=== PATIENT | male | born 1980 | race Caucasian/White ===

== ENCOUNTER 2017-05-12 21:40 | Emergency (ER) | payer OTHER, SELFPAY ==
[2017-05-12 21:46] VITALS: BP 133/92; PULSE 81; RESP 14; TEMP 37.2; O2SAT 97; BMI 26.9
--- NOTE | 2017-05-12 22:14 | HMH.EDWNDL ---
ED Disposition Clinical Impression: Abrasion Disposition: Home, Self-Care Condition on Discharge: Good Instructions: DI for Abrasion Additional Instructions: use meds and see pcp for follow up Prescriptions: Mupirocin [Bactroban 2% Ointment 22gm tube] 1 applicatio TP TID 5 Days #1 tube - Critical Care Critical Care Time: No Attestation: On 05/12/17, the high probability of a clinically significant, sudden or life threatening deterioration of the following system(s) required my full and direct attention, intervention and personal management. The time I documented below is in addition to time spent performing reported procedures but includes the following listed in this critical care notation. Medical Decision Making - Medical Records Medical records reviewed: Yes: I reviewed the patient's medical records. Vital Signs: 05/12/17 21:46 Temperature 98.9 F Temperature Source Oral Pulse Rate [Left Radial] 81 Respiratory Rate 14 Blood Pressure [Right Arm] 133/92 Blood Pressure Mean [Right Arm] 105 Blood Pressure Source [Right Arm] Automatic Cuff Blood Pressure Position [Right Arm] Sitting 02 Sat by Pulse Oximetry 97 Oxygen Delivery Method Room Air - Lab Data Lab results reviewed: Yes: I reviewed the patient's lab results. 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 by RN): cut finger yesterday on kevin metal and was concerned he had not had a tetanus vacc in over 10 yrs - History of Present Illness HPI narrative: open wd lt index finger with no drainage Onset (ago): day(s) Extremity Location: Left: hand (index finger) Place: home Patient tetanus UTD: No Context: accidental Associated symptoms: none - Related Data Previous Rx's Medication Instructions Recorded Mupirocin [Bactroban 2% Ointment 1 applicatio TP TID 5 Days #1 tube 05/12/17 22gm tube] Allergies Allergy/AdvReac Type Severity Reaction Status Date / Time Penicillins [PENICILLINS] Allergy Severe S-SWELLS-OR Verified 05/12/17 21:54 AL/THROAT [facility] History I have reviewed the patient's past medical history: Yes Medical History: Denies:: Cancer, Diabetes Mellitus Type 1, Diabetes Mellitus Type 2, MRSA Amputation: No Fractures: No - Social History Smoking Status: Never smoker Alcohol Intake: never - Psychiatric History Expresses thoughts of harming self/others: None Suicide Plan Description: No Plan ROS Obtained: Yes All systems reviewed & no additional complaints - Constitutional Constitutional: Denies fever(s) - Eyes Eyes: Denies change in vision - ENT Ears, Nose, Mouth, and Throat: Denies sore throat - Cardiovascular Cardiovascular: Denies chest pain - Respiratory Respiratory: No chest congestion, No cough - Gastrointestinal Gastrointestingal: Denies: abdominal pain - Musculoskeletal Musculoskeletal: Denies joint pain - Integumentary/Breasts Skin/Breast: Reports as per HPI, Denies rash, Reports wounds - Neurologic Neurologic: Denies seizure-like activity Physical Exam - General General appearance: in no apparent distress - Head Head exam: normocephalic - Eye Eye exam: Present: PERRL, EOMI - ENT ENT exam: Present: mucous membranes moist - Neck Neck exam: Present: trachea midline - Respiratory Respi
--- NOTE | 2017-05-12 22:18 | ED_ITS ---
ED Disposition Clinical Impression: Abrasion Disposition: Home, Self-Care Condition on Discharge: Good Instructions: DI for Abrasion Additional Instructions: use meds and see pcp for follow up Prescriptions: Mupirocin [Bactroban 2% Ointment 22gm tube] 1 applicatio TP TID 5 Days #1 tube - Critical Care Critical Care Time: No Attestation: On 05/12/17, the high probability of a clinically significant, sudden or life threatening deterioration of the following system(s) required my full and direct attention, intervention and personal management. The time I documented below is in addition to time spent performing reported procedures but includes the following listed in this critical care notation. Medical Decision Making - Medical Records Medical records reviewed: Yes: I reviewed the patient's medical records. Vital Signs: 05/12/17 21:46 Temperature 98.9 F Temperature Source Oral Pulse Rate [Left Radial] 81 Respiratory Rate 14 Blood Pressure [Right Arm] 133/92 Blood Pressure Mean [Right Arm] 105 Blood Pressure Source [Right Arm] Automatic Cuff Blood Pressure Position [Right Arm] Sitting 02 Sat by Pulse Oximetry 97 Oxygen Delivery Method Room Air - Lab Data Lab results reviewed: Yes: I reviewed the patient's lab results. 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 by RN): cut finger yesterday on kevin metal and was concerned he had not had a tetanus vacc in over 10 yrs - History of Present Illness HPI narrative: open wd lt index finger with no drainage Onset (ago): day(s) Extremity Location: Left: hand (index finger) Place: home Patient tetanus UTD: No Context: accidental Associated symptoms: none - Related Data Previous Rx's Medication Instructions Recorded Mupirocin [Bactroban 2% Ointment 1 applicatio TP TID 5 Days #1 tube 05/12/17 22gm tube] Allergies Allergy/AdvReac Type Severity Reaction Status Date / Time Penicillins [PENICILLINS] Allergy Severe S-SWELLS-OR Verified 05/12/17 21:54 AL/THROAT [facility] History I have reviewed the patient's past medical history: Yes Medical History: Denies:: Cancer, Diabetes Mellitus Type 1, Diabetes Mellitus Type 2, MRSA Amputation: No Fractures: No - Social History Smoking Status: Never smoker Alcohol Intake: never - Psychiatric History Expresses thoughts of harming self/others: None Suicide Plan Description: No Plan ROS Obtained: Yes All systems reviewed & no additional complaints - Constitutional Constitutional: Denies fever(s) - Eyes Eyes: Denies c
[2017-05-12 22:24] VITALS: BP 130/90; PULSE 80; RESP 16; TEMP 37; O2SAT 98
== END 2017-05-12 22:24 | disposition home or self-care (01) ==
PROVIDERS: Emergency Provider Emergency Medicine; Family Provider Emergency Medicine; PCP Emergency Medicine
DX: S60.411A Abrasion of left index finger, initial encounter (principal); Z23 Encounter for immunization
CPT/HCPCS: 90471; 90715; 96372; 99281

== ENCOUNTER → 2018-07-26 17:44 | Outpatient (CLI) | payer OTHER, SELFPAY ==
[2018-07-26 18:37] LABS: Basophils % 0.7 % (0.1-2.0); Eosinophils # 0.1 K/mm3 (0.0-0.4); Eosinophils % 2.2 % (0.1-12.0); Hematocrit 48.8 % (42.0-52.0); Lymphocytes # 1.7 K/mm3 (0.7-4.5); Lymphocytes % 29.8 % (10-50); Mean Corpuscular HGB Conc 34.8 g/dL (31.8-35.4); Mean Corpuscular Volume 89.2 fl (80-94); Mean Platelet Volume 8.5 fl (7.4-10.4); Monocytes # 0.3 K/mm3 (0.1-1.0); Monocytes % 4.4 % (1.7-9.3); Neutrophils # 3.6 K/mm3 (1.8-7.8); Neutrophils % 62.9 % (37.0-80.0); Platelet Count 296 K/mm3 (142-424); Red Blood Count 5.47 M/mm3 (4.60-6.20); Red Cell Distribution Width 12.9 % (11.5-17.5); White Blood Count 5.7 K/mm3 (4.8-10.8)
[2018-07-26 19:10] LABS: Alanine Aminotransferase 44 U/L (12-78); Albumin Level 4.5 gm/dL (3.4-5.0); Albumin/Globulin Ratio 1.2 (1.1-1.8); Alkaline Phosphatase 96 U/L (46-116); Anion Gap 15.1 mEq/L (5-15); Aspartate Amino Transferase 21 U/L (15-37); Bilirubin,Total 0.4 mg/dL (0.2-1.0); Blood Urea Nitrogen 10 mg/dL (7-18); Calcium 9.1 mg/dL (8.5-10.1); Carbon Dioxide 26 mmol/L (21.0-32.0); Chloride 104 mmol/L (98-107); Chol/HDL Ratio 6.2 (1-3.5); Cholesterol 240 mg/dL (140-200); Creatinine,Serum 1.04 mg/dL (0.70-1.30); Estimated Glomerular Filt Rate 80 ml/min (>60); GFR (African American) 96 ML/MIN (>60); Globulin 3.7 gm/dl (1.3-3.2); Glucose 91 mg/dL (74-106); HDL Cholesterol 39 mg/dL (27-67); LDL Cholesterol 151 mg/dL (0-130); Potassium 4.1 mmoL/L (3.5-5.1); Sodium 141 mmol/L (136-145); Thyroid Stimulating Hormone 0.58 uIU/ml (0.358-3.740); Total Protein,Serum 8.2 gm/dL (6.4-8.2); Triglycerides 251 mg/dL (30-200); VLDL Cholesterol 50 mg/dL (0-40)
[2018-07-28 18:08] LABS: Testosterone,Total 290 ng/dL (264-916); Vitamin D 25 Hydroxy 24.3 ng/mL (30.0-100.0)
== END ==
PROVIDERS: Visit Provider Physician Assistant
DX: L98.9 Disorder of the skin and subcutaneous tissue, unspecified (principal); N52.9 Male erectile dysfunction, unspecified
CPT/HCPCS: 80053; 80061; 82652; 84403; 84436; 84443; 85025

== ENCOUNTER → 2018-09-14 15:24 | Outpatient (CLI) | payer OTHER, SELFPAY ==
--- NOTE | 2018-09-14 15:40 | CT_ITS ---
CT sinus wo con INDICATION: ITS.REASON: Sinusitis ORDERING PHYSICIAN: Dylan Wills MD PATIENT AGE: 38 years COMPARISON: 09/03/2014 TECHNIQUE: Contrast Used:None Oral Contrast: Axial images were obtained. Sagittal and coronal reformatted images are reviewed as well. All CT scans at the facility use one or more dose reduction, viz: automated exposure control, ma/kV adjustment per patient size (including targeted exams where dose is matched to indication, i.e. head), or iterative reconstruction technique. FINDINGS: No significant mucosal thickening or sinus air-fluid level is evident. There are small bilateral blanka bullosa. There is mild rightward nasal septal deviation. There is narrowing of the right nasal canal anteriorly.. There is a small Gustabo cell on the left with mild narrowing of the left ostiomeatal complex. No mastoid effusion. The middle ears are well aerated. Unremarkable TMJs. Unremarkable appearing orbits. IMPRESSION: 1. Mild rightward nasal septal deviation with narrowing of the right nasal canal. 2. Narrowed left ostiomeatal complex with mucosal thickening and a small left Gustabo cell IMPRESSION:
== END ==
PROVIDERS: PCP Physician Assistant; Visit Provider Otolaryngology
DX: J32.9 Chronic sinusitis, unspecified (principal)
CPT/HCPCS: 70486

== ENCOUNTER → 2019-08-07 17:01 | Outpatient (CLI) | payer OTHER, SELFPAY ==
[2019-08-07 18:27] LABS: Basophils # 0.1 K/mm3 (0-0.2); Basophils % 0.8 % (0.1-2.0); Eosinophils # 0.2 K/mm3 (0.0-0.4); Eosinophils % 2.7 % (0.1-12.0); Hematocrit 46.1 % (42.0-52.0); Hemoglobin 16.3 g/dL (14.1-18.0); Lymphocytes # 1.8 K/mm3 (0.7-4.5); Lymphocytes % 22.7 % (10-50); Mean Corpuscular HGB Conc 35.4 g/dL (31.8-35.4); Mean Corpuscular Hemoglobin 31.4 pg (27.0-31.2); Mean Corpuscular Volume 88.8 fl (80-94); Mean Platelet Volume 8.6 fl (7.4-10.4); Monocytes # 0.4 K/mm3 (0.1-1.0); Monocytes % 4.5 % (1.7-9.3); Neutrophils # 5.6 K/mm3 (1.8-7.8); Neutrophils % 69.3 % (37.0-80.0); Platelet Count 288 K/mm3 (142-424); Red Blood Count 5.19 M/mm3 (4.60-6.20); Red Cell Distribution Width 13.3 % (11.5-17.5); White Blood Count 8.1 K/mm3 (4.8-10.8)
[2019-08-07 18:32] LABS: Alanine Aminotransferase 33 U/L (12-78); Albumin Level 5.1 g/dl (3.5-5.0); Albumin/Globulin Ratio 1.5 (1.1-1.8); Alkaline Phosphatase 101 U/L (38-126); Anion Gap 12.9 mEq/L (5-15); Aspartate Amino Transferase 34 U/L (17-59); Bilirubin,Total 0.7 mg/dl (0.2-1.3); Blood Urea Nitrogen 10 mg/dl (9-20); Calcium 9.9 mg/dl (8.4-10.2); Carbon Dioxide 24 mmol/L (22.0-30.0); Chloride 105 mmol/L (98-107); Chol/HDL Ratio 6.2 (1-3.5); Cholesterol 254 mg/dl (140-200); Estimated Glomerular Filt Rate 93 ml/min (>60); GFR (African American) 113 ML/MIN (>60); Globulin 3.5 g/dL (1.3-3.2); Glucose 93 mg/dl (74-100); HDL Cholesterol 41 mg/dl (40-60); Potassium 3.9 mmoL/L (3.5-5.1); Sodium 138 mmol/L (136-145); Total Protein,Serum 8.6 g/dl (6.3-8.2)
[2019-08-07 18:44] LABS: Direct LDL Cholesterol 136.19 mg/dL (100-129)
[2019-08-07 18:50] LABS: T4 (Thyroxine) 8.3 ug/dl (5.53-11.0)
[2019-08-07 19:00] LABS: Triglycerides 582 mg/dl (30-150)
[2019-08-07 19:04] LABS: Thyroid Stimulating Hormone 1.16 uIU/mL (0.465-4.68)
[2019-08-09 20:32] LABS: Vitamin D 25 Hydroxy 19.8 ng/mL (30.0-100.0)
== END ==
PROVIDERS: Visit Provider Physician Assistant
DX: I10 Essential (primary) hypertension (principal); E55.9 Vitamin D deficiency, unspecified; Z79.899 Other long term (current) drug therapy
CPT/HCPCS: 80053; 80061; 82652; 84436; 84443; 85025

== ENCOUNTER → 2020-04-06 09:20 | Outpatient (CLI) | payer OTHER, SELFPAY ==
--- NOTE | 2020-04-06 09:20 | FL_ITS ---
PROCEDURE: FL BARIUM SWALLOW CLINICAL INDICATION: Dysphagia COMPARISON: No exams were available for comparison TECHNIQUE: In the upright position the patient was observed to swallow barium in both the AP and lateral view. The cervical esophagus was examined under fluoroscopy with images obtained. The patient was then placed prone in the right anterior oblique position and was observed to swallow barium with Valsalva technique . FLUOROSCOPY TIME: FINDINGS: There was no evidence of aspiration. There was normal peristalsis. No filling defects or mucosal abnormalities. No masses or strictures. There is mild spasm of the cricopharyngeus IMPRESSION: Mild cricopharyngeal spasm otherwise negative barium swallow Dictated by: Arun Gamboa MD 04/06/2020 18:41 Arun Gamboa MD in [place] 04/06/2020 18:41
== END ==
PROVIDERS: PCP Physician Assistant; Visit Provider Nurse Practitioner Family
DX: R13.10 Dysphagia, unspecified (principal)
CPT/HCPCS: 74220

== ENCOUNTER → 2020-04-29 11:52 | Outpatient (CLI) | payer OTHER, SELFPAY ==
[2020-04-29 14:26] LABS: Basophils # 0.1 K/mm3 (0-0.2); Basophils % 0.6 % (0.1-2.0); Eosinophils # 0.1 K/mm3 (0.0-0.4); Eosinophils % 1.1 % (0.1-12.0); Hematocrit 43.1 % (42.0-52.0); Hemoglobin 14.4 g/dL (14.1-18.0); Lymphocytes # 2.3 K/mm3 (0.7-4.5); Lymphocytes % 29.3 % (10-50); Mean Corpuscular HGB Conc 33.5 g/dL (31.8-35.4); Mean Corpuscular Hemoglobin 30.9 pg (27.0-31.2); Mean Corpuscular Volume 92.3 fl (80-94); Mean Platelet Volume 8.5 fl (7.4-10.4); Monocytes # 0.4 K/mm3 (0.1-1.0); Monocytes % 4.6 % (1.7-9.3); Neutrophils % 64.3 % (37.0-80.0); Platelet Count 245 K/mm3 (142-424); Red Blood Count 4.67 M/mm3 (4.60-6.20); Red Cell Distribution Width 13.3 % (11.5-17.5); White Blood Count 7.8 K/mm3 (4.8-10.8)
[2020-04-29 14:46] LABS: Alanine Aminotransferase 23 U/L (12-78); Albumin Level 4.5 g/dl (3.5-5.0); Albumin/Globulin Ratio 1.5 (1.1-1.8); Alkaline Phosphatase 77 U/L (38-126); Anion Gap 10.4 mEq/L (5-15); Aspartate Amino Transferase 28 U/L (17-59); Bilirubin,Total 0.7 mg/dl (0.2-1.3); Blood Urea Nitrogen 15 mg/dl (9-20); Calcium 9.8 mg/dl (8.4-10.2); Carbon Dioxide 29 mmol/L (22.0-30.0); Chloride 106 mmol/L (98-107); Chol/HDL Ratio 6.2 (1-3.5); Cholesterol 205 mg/dl (140-200); Estimated Glomerular Filt Rate 93 ml/min (>60); GFR (African American) 113 ML/MIN (>60); Glucose 95 mg/dl (74-100); HDL Cholesterol 33 mg/dl (40-60); Magnesium 2.2 mg/dl (1.6-2.3); Potassium 4.4 mmoL/L (3.5-5.1); Sodium 141 mmol/L (136-145); Total Protein,Serum 7.5 g/dl (6.3-8.2); Triglycerides 314 mg/dl (30-150); VLDL Cholesterol 63 mg/dL (0-40)
[2020-04-29 14:57] LABS: Direct LDL Cholesterol 118.01 mg/dL (100-129)
[2020-04-29 15:05] LABS: T4 (Thyroxine) 7.2 ug/dl (5.53-11.0)
[2020-04-29 15:17] LABS: Thyroid Stimulating Hormone 1.21 uIU/mL (0.465-4.68)
== END ==
PROVIDERS: PCP Physician Assistant; Visit Provider Physician Assistant
DX: R07.9 Chest pain, unspecified (principal); R00.1 Bradycardia, unspecified; R25.1 Tremor, unspecified
CPT/HCPCS: 80053; 80061; 83735; 84436; 84443; 85025; 93225; 93226

== ENCOUNTER → 2020-04-29 14:08 | Outpatient (CLI) | payer OTHER, SELFPAY | PROVIDERS: Visit Provider Physician Assistant | DX: R07.9 Chest pain, unspecified (principal) | CPT/HCPCS: 80053; 80061; 83735; 84436; 84443; 85025 ==

== ENCOUNTER → 2020-05-02 12:57 | Outpatient (CLI) | payer OTHER, SELFPAY ==
[2020-05-02 14:31] LABS: Coronavirus 19 IgG Antibody Negative (Negative); Coronavirus 19 IgM Antibody Negative (Negative)
== END ==
PROVIDERS: Visit Provider Internal Medicine Gastroenterology
DX: Z01.812 Encounter for preprocedural laboratory examination (principal); Z20.822 Contact with and (suspected) exposure to COVID-19; Z13.810 Encounter for screening for upper gastrointestinal disorder; R13.10 Dysphagia, unspecified
CPT/HCPCS: 36415; 86328

== ENCOUNTER 2020-05-04 13:57 | Day surgery (SDC) | payer OTHER, SELFPAY ==
[2020-04-28 12:42] VITALS: BMI 24.3
[2020-05-04 14:16] VITALS: BP 138/95; PULSE 67; RESP 18; TEMP 36.7; O2SAT 97
[2020-05-04 14:35] VITALS: O2SAT 97
--- NOTE | 2020-05-04 14:53 | HMH.PROC ---
[facility] Procedure Note Procedure Note:: Upper Endoscopy Procedure Report: Esophagogastroduodenoscopy with cold biopsies and TTS balloon dilation Endoscopost: Lam Siegel II, MD Referring Physician: Milvia Gonzalez PA-C Date of Procedure: May 04, 2020 Equipment: Olympus GIF 180 standard upper endoscope Sedation: MAC sedation Indications: Mr. Perez is a 40-year-old gentleman who is here for diagnostic evaluation of his globus sensation. In the beginning, he did have a clicking sensation in the mid upper sternum. He has had some hard and painful swallowing and intermittent dysphagia. He also has a sore throat with some fullness in the right side of his throat. He has noted some frequent clearance of the throat. The patient also has had intermittent right-sided abdominal pain. He reports moderate belching. He has had some heartburn, reflux and regurgitation. He reports occasional nausea. He has had no early satiety. The patient also has had irregular bowel function with constipation alternating with diarrhea. He has incomplete bowel evacuation. He does report some moderate anxiety. He has noted occasional hemorrhoidal bleeding. His last colonoscopy was more than 10 years ago. He reports no cough or hoarseness. He does smoke cigarettes/tobacco in the past. Procedure: Prior to the procedure, a history and physical exam was performed, and patient's medications and allergies were reviewed. The risks, benefits and alternatives of the sedation and procedure were discussed with the patient. All questions were answered and informed consent was obtained. The patient was brought to the procedure room. Patient identification and proposed procedure were verified by the physician and the nurse. The patient was placed in a left lateral decubitus position and the scope was passed under direct vision. Throughout the procedure, the patient's blood pressure, pulse, and oxygen saturations were monitored continuously. The upper GI endoscopy was accomplished without difficulty. The patient tolerated the procedure well. Findings: The scope was passed directly into the upper esophagus and advanced to the third portion of the duodenum. The post bulbar duodenum and duodenal bulb were normal with normal mucosa and conniventes. Cold biopsies were taken from the post bulbar duodenum. There was mild peptic duodenitis of the bulb. The scope was withdrawn through a normal pylorus into the stomach. The antrum of the stomach is normal. There was moderate chronic gastritis with mosaic pattern and some submucosal petechiae in the body and fundus of the stomach (type A gastritis) and biopsies were obtained from the lesser curvature to rule out H. pylori. Upon retroflexion there was no hiatal hernia. The scope was then withdrawn into the esophagus. There was a serrated Z-line. There was no evidence of reflux esophagitis or Schatzki's ring. There were strong tertiary contractions and evidence of moderate esophageal dysmotility. The entire esophagus was dilated to 60 English/20 mm with a TTS hydrostatic balloon. There was moderate resistance at the cricopharyngeus. The remainder of the esophageal mucosa was normal. Impression: 1. Cricopharyngeal spasm status post dilation to 20 mm 2. Nonerosive GERD with moderate esophageal dysmotility 3. Chronic gastritis?rule out H. pylori Plan: I will follow-up the biopsies. The patient does have cricopharyngeal spasm/globus with esophageal dyskinesia and functional GERD. We will discuss treatment options. I do feel that much of this is related to gas pressure gradients from colonic fermentation/gas production.
[2020-05-04 14:54] VITALS: BP 134/90; PULSE 87; RESP 18; O2SAT 94
[2020-05-04 15:04] VITALS: BP 131/84; PULSE 74; RESP 18; O2SAT 97
[2020-05-04 15:14] VITALS: BP 140/90; PULSE 64; RESP 18; O2SAT 98
--- NOTE | 2020-05-04 15:34 | HMH.ANESCL ---
[facility] Anesthesia Checklist - Patient Identification Patient Identification: Arm Band - Structural Data Admitted From: Home Planned Operative Procedure/s: egd Consent for Planned Operative Procedure(s) Verified: Yes Verified Documents: Surgical Consent - Additional verifications Anesthesia Reactions: No Hx Blood Transfusions: No Blood Transfusion Reaction: No - Anesthesia Plan Anesthesia Risk discussed: Yes Anesthesia Plan: Verified ASA Class: II Anesthesia Type: General [facility] History Medical History: Reports:: Asthma, Gastroesophageal Reflux Disease(GERD), Hyperlipidemia, Hypertension, MRSA Denies:: Cancer, Diabetes Mellitus Type 1, Diabetes Mellitus Type 2, Internal Pacemaker, Seizures *Have you ever received a pneumonia vaccine?: No *Have you received a flu vaccine this season?: No Other Medical History: Reports: Hoarseness, Sinus Problems. Denies: Blood Transfusion Reaction Anesthesia experience/problems:: none Other Surgeries: Yes: No Previous Surgery, Colonoscopy. No: Pacemaker Amputation: No Fractures: No - *Social History Last grade of school completed: Some college Smoking Status: Current every day smoker Tobacco Type: e-cigarettes # Packs/Day (cigarettes): 1 Smoking End Date: 03/2020 Alcohol Intake: never Substance Use Type: marijuana *Occupational Status:: employed, student Housing: house Household Members: spouse *Travel in the last 8 weeks: None Family Hx:: Diabetes, Heart Attack, Hypertension
[2020-05-04 15:41] VITALS: BP 151/98; PULSE 62; RESP 18; O2SAT 97
== END 2020-05-04 15:45 | disposition home or self-care (01) ==
LOC: OUTP 13:58
PROVIDERS: PCP Physician Assistant; Visit Provider Internal Medicine Gastroenterology
PROC: 0DJ08ZZ Inspection of Upper Intestinal Tract, Via Natural or Artificial Opening Endoscopic (ICD-10-PCS; CPT 43235; principal; 2020-05-04 14:30)
DX: F41.9 Anxiety disorder, unspecified; J45.909 Unspecified asthma, uncomplicated; J39.2 Other diseases of pharynx; K21.9 Gastro-esophageal reflux disease without esophagitis; K22.4 Dyskinesia of esophagus; K29.50 Unspecified chronic gastritis without bleeding; E78.5 Hyperlipidemia, unspecified; I10 Essential (primary) hypertension; Z86.14 Personal history of Methicillin resistant Staphylococcus aureus infection; Z72.0 Tobacco use; F12.90 Cannabis use, unspecified, uncomplicated; Z82.49 Family history of ischemic heart disease and other diseases of the circulatory system
CPT/HCPCS: 43239; 43249; C1726

== ENCOUNTER → 2020-05-15 14:04 | Outpatient (CLI) | payer OTHER, SELFPAY ==
--- NOTE | 2020-05-15 14:35 | PC.NURSE ---
Per Sakina Wray, [employer] INSPECTOR: Spoke with Jenna (Dr. Miguel office) need to reschedule stress test. Pt was hypertensive. Pt instructed to take his Lisinopril 10mg BID and follow up with cardiology on Monday. If develops S/S go to the ER. Pt verbalized understanding. Cardiology clinic 1:00pm.
== END ==
PROVIDERS: PCP Physician Assistant; Visit Provider Physician Assistant
DX: R07.9 Chest pain, unspecified (principal); R06.81 Apnea, not elsewhere classified; R25.1 Tremor, unspecified
CPT/HCPCS: 93306; 95806

== ENCOUNTER 2022-02-16 15:09 | Outpatient (RCR) | payer OTHER, SELFPAY ==
--- NOTE | 2022-02-16 16:28 | HMH.PTOPEV ---
PT Outpatient Evaluation Rehab PT Outpatient Evaluation Start: 02/16/22 15:56 Freq: Status: Active Protocol: Document 02/16/22 15:57 CHRISTIANO (Rec: 02/16/22 16:27 CHRISTIANO [id number]) E-signed By Jose Lee, PT Outpatient Therapy Subjective History Subjective History Patient is a 42 year old male presenting to outpatient PT with reports of CS pain with BUE radicular symptoms. Patient underwent ACDF and ADR surgical procedures on 08/11/21 . Patient demonstrates lack of motor control of all R shoulder mm, as well as pain radiating to L elbow. Patient was initially having symptoms to B C8 dermatomes. Comorbidiites include hx of HTN, HL, asthma. Chief Complaint Pain,Stiff,Clicks,Catches/ Locks,Gives out/Unstable, Paresthesia,Weakness Symptom Type Ache,Throb,Sharp,Dull Symptoms Relieved By Rest/Positioning,OTC Meds Symptoms Aggravated By Sitting,Lifting Prior Functional Limitations None Current Functional Limitations Reaching,Lifting,Housework, Sleeping Symptom Description Constant but Variable Level of pain today (0-10) 3 Pain scale - at its best (0-10) 3 Pain scale - at its worst (0-10) 6 Cervical Eval Palpation Cervical Muscles R Upper Trapezius,L Upper Trapezius Cervical/Thoracic Palpation Findings Tenderness Posture Head/C-Spine Posture Sitting Position C-Spine Flattened Head/C-Spine Posture Standing Position C-Spine Flattened Flexibility Deficits Upper Trapezius Muscle Length (R) Moderate Tightness,(L) Moderate Tightness Pectoralis Minor Muscle Length (R) Moderate Tightness,(L) Moderate Tightness Passive Joint Mobility Cervical PIVM Dec: R OA L OA R AA L AA R C2/3 L C2/3 R C3/4 L C3/4 R C4/5 L C4/5 R C5/6 L C5/6 R C6/7 L C6/7
== END 2022-02-16 15:10 | disposition home or self-care (01) ==
LOC: PT 15:09
PROVIDERS: Visit Provider Physician Assistant
DX: R20.2 Paresthesia of skin (principal); M43.22 Fusion of spine, cervical region
CPT/HCPCS: 97163

== ENCOUNTER 2022-03-29 16:00 | Outpatient (RCR) | payer OTHER, SELFPAY ==
--- NOTE | 2022-03-18 16:48 | HMH.PTOPEV ---
PT Outpatient Evaluation Rehab PT Outpatient Evaluation Start: 03/18/22 16:31 Freq: Status: Active Protocol: Document 03/18/22 16:31 CHRISTIANO (Rec: 03/18/22 16:48 CHRISTIANO [id number]) E-signed By Jose Lee, PT Outpatient Therapy Subjective History Subjective History Patient is a 42 year old male presenting to outpatient PT with reports of chronic cervical spine pain with RUE radicular symptoms starting 2021. Symptoms have progressively gotten worse and are of insidious onset. Procdure perfomed was C6/7 fusion with C4/5 disc replacement per patient report . Chief Complaint Pain,Spasms,Stiff,Clicks, Paresthesia,Weakness Symptom Type Ache,Throb,Sharp,Dull,Burning, Numbness,Tingling Symptoms Relieved By Rest/Positioning Symptoms Aggravated By Physical Activity,Lifting Prior Functional Limitations None Current Functional Limitations Reaching,Lifting,Housework, Driving,Sleeping,Recreation Activity Symptom Description Constant but Variable Level of pain today (0-10) 6 Pain scale - at its best (0-10) 2 Pain scale - at its worst (0-10) 6 Cervical Eval Palpation Cervical Muscles R Upper Trapezius,L Upper Trapezius Cervical/Thoracic Palpation Findings Tenderness,Spasm,Trigger Point Posture Head/C-Spine Posture Sitting Position C-Spine Flattened Head/C-Spine Posture Standing Position C-Spine Flattened Flexibility Deficits Upper Trapezius Muscle Length (R) Moderate Tightness,(L) Moderate Tightness Levaetor Scapulae Muscle Length (R) Moderate Tightness,(L) Moderate Tightness Pectoralis Minor Muscle Length (R) Moderate Tightness,(L) Moderate Tightness Passive Joint Mobility Cervical PIVM Dec: R OA L OA R AA L AA R C2/3 L C2/3 R C3/4 L C3/4 R C4/5 L C4/5 R C5/6 L C5/6 R C6/7
== END 2022-03-29 16:05 | disposition home or self-care (01) ==
LOC: PT 16:00
PROVIDERS: PCP Physician Assistant; Visit Provider Physician Assistant
DX: R20.2 Paresthesia of skin (principal)
CPT/HCPCS: 97010; 97014; 97110; 97163; G0283

== ENCOUNTER → 2022-07-12 23:29 | Outpatient (CLI) | payer OTHER, SELFPAY ==
[2022-07-12 18:40] LABS: Chloride 99 mmol/L (98-107); Sodium 139 mmol/L (136-145)
[2022-07-12 18:43] LABS: Alanine Aminotransferase 32 U/L (12-78); Albumin Level 4.7 g/dl (3.5-5.0); Albumin/Globulin Ratio 1.7 (1.1-1.8); Alkaline Phosphatase 86 U/L (38-126); Anion Gap 21.3 mEq/L (5-15); Aspartate Amino Transferase 35 U/L (17-59); Bilirubin,Total 0.6 mg/dl (0.2-1.3); Blood Urea Nitrogen 12 mg/dl (9-20); Calcium 9.2 mg/dl (8.4-10.2); Carbon Dioxide 23 mmol/L (22.0-30.0); Cholesterol 259 mg/dl (140-200); Estimated Glomerular Filt Rate 92 ml/min (>60); GFR (African American) 111 ML/MIN (>60); Globulin 2.8 g/dL (1.3-3.2); Glucose 79 mg/dl (74-100); Potassium 4.3 mmoL/L (3.5-5.1); Total Protein,Serum 7.5 g/dl (6.3-8.2)
[2022-07-12 18:44] LABS: Chol/HDL Ratio 8.1 (1-3.5); HDL Cholesterol 32 mg/dl (40-60)
[2022-07-12 18:45] LABS: Triglycerides 482 mg/dl (30-150)
[2022-07-12 18:49] LABS: Basophils # 0.1 K/mm3 (0-0.2); Basophils % 0.6 % (0.1-2.0); Eosinophils # 0.1 K/mm3 (0.0-0.4); Eosinophils % 1.3 % (0.1-12.0); Hematocrit 41.7 % (42.0-52.0); Hemoglobin 13.8 g/dL (14.1-18.0); Lymphocytes # 2.1 K/mm3 (0.7-4.5); Lymphocytes % 26.3 % (10-50); Mean Corpuscular HGB Conc 33.2 g/dL (31.8-35.4); Mean Corpuscular Volume 84.5 fl (80-94); Mean Platelet Volume 8.4 fl (7.4-10.4); Monocytes # 0.5 K/mm3 (0.1-1.0); Monocytes % 6.1 % (1.7-9.3); Neutrophils # 5.4 K/mm3 (1.8-7.8); Neutrophils % 65.8 % (37.0-80.0); Platelet Count 331 K/mm3 (142-424); Red Blood Count 4.93 M/mm3 (4.60-6.20); White Blood Count 8.1 K/mm3 (4.8-10.8)
[2022-07-12 18:54] LABS: Direct LDL Cholesterol 135.69 mg/dL (100-129)
[2022-07-12 18:59] LABS: 25-OH Vitamin D, Total 25.8 ng/mL (30-100)
[2022-07-12 19:11] LABS: Prostate Specific Ag Screen 1.4 ng/ml (0.0-4.0)
[2022-07-12 19:12] LABS: Thyroid Stimulating Hormone 0.45 uIU/mL (0.465-4.68)
[2022-07-12 19:31] LABS: Vitamin B12 360 pg/mL (239-931)
[2022-07-14 09:44] LABS: Testosterone,Total 426 ng/dL (264-916)
== END ==
PROVIDERS: PCP Physician Assistant; Visit Provider Physician Assistant
DX: Z00.00 Encounter for general adult medical examination without abnormal findings (principal); F41.9 Anxiety disorder, unspecified; E55.9 Vitamin D deficiency, unspecified; Z12.5 Encounter for screening for malignant neoplasm of prostate
CPT/HCPCS: 80053; 80061; 82306; 82607; 84403; 84443; 85025; G0103

== ENCOUNTER 2024-06-28 12:58 | Outpatient (CLI) | payer OTHER, SELFPAY ==
--- OUTSIDE RECORDS SUMMARY | 2024-06-28 12:59 | XMS_ITS | Continuity of Care Document ---
Author Organization [facility]. If a dditional information is needed, contact Health Information Management at [phone] Address [address] [place] [address] Phone Care Team Providers Care Land Economist Name Role Phone Unavailable Unavailable Unavailable Unavailable Unavailable Unavailable Unavailable Unavailable Unavailable Unavailable Unavailable Unavailable Unavailable Unavailable Unavailable Unavailable Unavailable Unavailable Unavailable Unavailable Unavailable Unavailable Unavailable Unavailable Unavailable Unavailable Unavailable Unavailable Unavailable Unavailable Unavailable Unavailable Unavailable Unavailable Unavailable Unavailable Unavailable Unavailable Unavailable Unavailable Unavailable Unavailable Unavailable Unavailable Unavailable Unavailable Unavailable Unavailable Note Xu Scanlon MD-16-May-2024 ? ? ? [facility] ([facility])Discharge SummaryREPORT#:[id number] REPORT STATUS: SignedDATE:05/26/24 TIME: 1742PATIENT: NOLBERTO GARY UNIT #: [id number]#:[id number] [address] [birth year] AGE: 44 SEX: M ATTEND: Ghislaine Mcnair MDADM AUTHOR: Ghislaine Mcnair MDREP SRV REP SRV JERRY: 1742* ALL edits or amendments must be made on the electronic/computer document *General InformationDate of admission:Observation Start Date: 05/25/24Date of admission: 05/25/24Discharge date: 05/26/24Admission diagnosis:Dysphonia, Bilateral facial numbness, left upper extremity numbnessmlelectrolyte abnormality plus/minus anxietyHypophosphatemiaStroke alertHistory of vaping every dayMicrocytic anemia.Discharge diagnosis:Dysphonia, Bilateral facial numbness, left upper extremity numbnessmlelectrolyte abnormality plus/minus anxietyHypophosphatemiaStroke alertHistory of vaping every dayMicrocytic anemia.Hospital course://Dysphonia, Bilateral facial numbness, left upper extremity numbnessmlelectrolyte abnormality plus/minus anxiety//Hypophosphatemia//Stroke alert-CT brain, cervical spine, CT angio head and neck reviewed, no acute finding-hemoglobin A1c 6. LDL elevated. Triglycerides elevated. Low-fat diet.Lifestyle modification and repeat lipid profile and A1c in 3 months with PCP.-MRI brain no evidence of acute stroke. Results discussed with Neurology canfollow-up outpatient with outpatient neurologist.-phosphate repleted and labs within normal.-okay to DC home per neurology. CTA head and neck negative-swallow evaluation normal-ESR CRP jlyans-nxbdacz-B WNL//History of vaping every day-The patient was questioned regarding their smoking habits, and I havedetermined, as the patient's treating physician, that there is a medicalnecessity in regards to the patient's medical condition to provide smokingcessation program education. The patient was advised to stop smoking andcounseled for a period of greater than 10 minutes. The patient was instructed tofollow up with a primary care physician for smoking cessation and giveninformation regarding local smoking cessation programs in the area. The patientreceived detailed discharge instructions as to how to stop smoking. The patientexpressed an understanding of the need to follow up and the plan for smokingcessation.//Microcytic anemiaStable. Follow-up PCPNo gross evidence of bleeding denies melena. No difficulty swallowing.//DVT PPXSCD for nowAssociated exam:pt seen and examinedfeels wellConsultants: neurologyPt. condition on discharge: improved, stableAllergies:Allergies:No Known Allergies (Coded, 05/25/24)ObjectiveVS/I OLast Documented: Result Date Time Pulse Ox 100 05/26 09 B/P 129/84 05/26 09 B/P Mean 99.4 05/26 09 O2 Delivery Room air 05/26 905 Temp 97.7 05/26 09 Pulse 62 05/26 905 Resp 20 05/26 90524 hour I O ending at 0700: 05/26 0700 05/25 1900 Intake Total Output Total Balance Patient 212 lb Weight Weight Bed scale Measurement MethodPATIENT WEIGHT:Weight (lb): 212Weight (oz): 4.88Weight (kg): 96.300General appearance: alert, awakeHead/eyes: atraumatic, clear cornea, EOMI, normal conjunctiva/sclera, normaleyelids/periorb., normal fundi, normocephalic, PERRLACardiovascular: normal capillary refill, regular rate rhythmRespiratory: clear to auscultation, no distress, no tendernessGI: non-tender, normal abdominal aorta, soft, no distention, no guarding, nohernia, no mass/organomegaly, no pulsatile mass, no reboundExtremities: moves all, normal capillary refill, normal motor function, normalrange of motion, normal sensory, no edema-all extremitiesMusculoskeletal: full range of motion, normal inspectionNeuro/COMPLAINT INVESTIGATOR: alert, oriented X 3ResultsFindings/Data:Laboratory Tests: 05/26 05/26 0537 0537 Chemistry Sodium (135 - 145 mmol/L) 139 Potassium (3.5 - 5.2 mmol/L) 4.7 Chloride (95 - 110 mmol/L) 107 Carbon Dioxide (19 - 34 mmol/L) 22 BUN (6 - 22 mg/dl) 9 Creatinine (0.43 - 1.13 mg/dL) 0.90 Est GFR (CKD-EPI 2020) (>/=90) >90 Glucose (70 - 110 mg/dL) 87 Calcium (8.4 - 10.2 mg/dL) 8.9 Phosphorus (2.3 - 5.0 mg/dL) 4.4 C-Reactive Protein (0 - 1.0 mg/dL) 0.8 Hematology WBC (4.0 - 10.5 10 3/u) 8.0 RBC (4.63 - 6.08 10 6/uL) 4.54 L Hgb (13.7 - 17.5 G/DL) 10.4 L Hct (40.1 - 51.0 %) 33.8 L MCV (79.0 - 92.2 fl) 74.4 L MCH (25.7 - 32.2 pg) 22.9 L MCHC (32.3 - 36.5 g/dl) 30.8 L RDW (11.6 - 14.4 %) 16.9 H Plt Count (150 - 400 10 3/uL) 299 MPV (9.4 - 12.4 fl) 10.5 Nucleated RBC % (auto) (0.0 - 0.2 %) 0.0 Immature Gran % (0.0 - 0.4 %) 0.4 Immature Gran # (0.00 - 0.03 10 3/uL) 0.03 Absolute Neutrophils (1.78 - 5.38 10 3/uL) 5.12 Segmented Neutrophils (34.0 - 67.9 %) 64.4 Lymphocytes (21.8 - 53.1 %) 25.5 Lymphocytes # (1.32 - 3.57 10 3/uL) 2.03 Monocytes (5.3 - 12.2 %) 7.9 Monocytes # (0.30 - 0.82 10 3/uL) 0.63 Eosinophils (0.8 - 7.0 %) 1.3 Eosinophils # (0.04 - 0.54 10 3/uL) 0.10 Basophils (0.2 - 1.2 %) 0.5 Basophils # (0.01 - 0.08 10 3/uL) 0.04 Nucleated RBCs # (0.00 - 0.18 10 3/uL) 0.00 ESR (0 - 10 mm/hr) 18 HRadiology data:Recent Impressions:MAGNETIC RESONANCE IMAGING - MRI BRAIN WO CONTRAST 05/26 0945 Report Impression - Status: SIGNED Entered: 05/26/2024 1044Impression:1. No acute ischemia, edema, mass effect, midline shift orintracranial hemorrhage.2. Left parietal deep white matter the FLAIR signal hyperintensity asabove potentially representing small vessel ischemic changes; thoughrelatively unexpected for patients age. Please correlate with riskfactors for precocious microangiopathy such as chronic hypertension,diabetes, collagen vascular disease, vasculitis and/or smoking.Other causes of demyelination/axonal injury could be consideredincluding sequela of previous trauma, infection, or inflammation. Nofindings to suggest multiple sclerosis.Workstation ID: [id number] By: CORDELIA Bucio M.D.RADIOLOGY - VIDEO SWALLOW 05/26 1044 Report Impression - Status: SIGNED Entered: 05/26/2024 1456FINDINGS/IMPRESSION:Modified barium swallow was performed by the Speech Pathologist. Theradiologists interpreting this examination were not present duringthe performance of the examination. Please refer to the speechpathology report for complete evaluation.Workstation ID: [id number], Mary Jo M.D., staff radiologist, have reviewed the imagesfor this examination and the diagnostic interpretation provided byAnoop Cano D.O., resident medical officer, and I am in completeagreement with the findings.Impression By: LUCIAN Jo M.D.Results: labs reviewed, vital signs reviewed, current med profile rev'dTreatments ProceduresLab:Chemistry last 24 hrs: 05/26 0537 Chemistry Sodium (135 - 145 mmol/L) 139 Potassium (3.5 - 5.2 mmol/L) 4.7 Chloride (95 - 110 mmol/L) 107 BUN (6 - 22 mg/dl) 9 Creatinine (0.43 - 1.13 mg/dL) 0.90 Glucose (70 - 110 mg/dL) 87Hematology last 24 hrs: 05/26 0537 Hematology WBC (4.0 - 10.5 10 3/u) 8.0 Hgb (13.7 - 17.5 G/DL) 10.4 L Hct (40.1 - 51.0 %) 33.8 L Plt Count (150 - 400 10 3/uL) 299Discharge InstructionsPCPPCP:PCP: No Primary or Family Physician)( Discharge to: Home/Self CareDischarge InstructionsAdditional Discharge Routines: PCP Follow- Up)( Diet: Low FatDischarge management: greater than 30 minsTime spent: Time spent on patient care (minutes): 35Follow-up AppointmentsPCP follow up: PCP: No Primary or Family Physician PCP follow up timeframe: In 1-2 weeks Special instructions:follow up with your neurologist outpatient follow up for microcytic anemia low fat diet and repeat lipid panel 3 monthsQuality: DischargeCurrent MedicationsCurrent medication review:I attest that the foregoing medication list in the medical record is true,accurate, and complete to the best of my knowledge. at 1817RPT #: [id number] OF REPORT Warner Tubbs MD-26-May-2024 ? ? ? [facility] [address] [place] [address] OT Initial or ReEval POCPATIENT'S NAME: NOLBERTO GARY UNIT #: [id number]: [birth year] . PHYSICIAN:Ghislaine Mcnair MD PT TYPE: DIS INoADMISSION DATE: 05/25/24 ROOM #: V.528-N-[id number] [facility] Number: [id number] Number: [id number] of Care: 05/25/2024Visits since start of care: 1Date: 05/26/2024Patient Date of : 1980Location: Inpatient Rehabilitation ServicesReason for Treatment: OTETreating Therapist: Dylan Rapp OTPrimary Care Provider: Physician, NoReferring Provider: Renea Hylton Initial Evaluation Plan of CareDiagnosisPlan Recommended Treatment Frequency and DurationFrequency: 0 time(s) per weekDuration: 0 Day(s)Patient returned To: BedNeeds Within Reach: YesNursing Informed of Status: YesAssessmentAssessmentPatient is S for safety c increased time for Activities of Daily Living andfunctional transfers. Skilled Occupational Therapy services are not requiredat this time.PrognosisGood potential to reach and maintain prior level of functionPain Level0 out of 10Signature(s)Electronically Signed By: Dylan Rapp OT 05/26/2024, 2:36 PM (ET)Referring Physician SignatureI certify the need for these services furnished under this plan of treatment andPATIENT NAME: NOLBERTO GARY my care.Suly Schneider/Time at 1003PATIENT NAME: NOLBERTO GARY Warner Tubbs MD-26-May-2024 ? ? ? [facility] [id number] [place] [id number] Initial or ReEval POCPATIENT'S NAME: NOLBERTO GARY UNIT #: [id number]: [birth year] . PHYSICIAN:Ghislaine Mcnair MD PT TYPE: DIS INoADMISSION DATE: 05/25/24 ROOM #: V.[id number] Name: NOLBERTO GARYMedical Record Number: [id number] Number: [id number] of Care: 05/25/2024Visits since start of care: 2Date: 05/26/2024Patient Date of : 1980Location: Inpatient Rehabilitation ServicesReason for Treatment: Dysphagia PINK; S/L/CTreating Therapist: Yaniv Patterson M.S., [facility]- SLPPrimary Care Provider: Physician, NoReferring Provider: Berta Hylton-Language Pathology Initial Evaluation Plan of CareDiagnosisPlan Planned Interventions [id number] 79415 - EVALUATE [id number] - 27570 - ORAL FUNCTION [id number] - 68301 - MOTION FLUOROSCOPY/[id number] - 39510 - SPEECH/HEARING [id number] - 69658 - SPEECH SOUND LANGCOMPREHEN Recommended Treatment Frequency and DurationFrequency: 1 time(s) per dayFrequency Notes: f/u 1-2xDuration: 4 Week(s) Swallowing Recommendations and PrecautionsMethod of POIntake:Diet Texture: Regular (7)Liquid Thin (0)Consistency:Positioning: Upright 90 degreesMed as toleratedPrecautions:Oral Care: Frequent and thoroughOther Standard aspiration precautions, General refluxPATIENT NAME: NOLBERTO GARY : precautions, Alternate solids/liquids, Small sips and bites when eating, Slow rate; swallow between bites, Feed only when alertNeeds Within Reach: YesNursing Informed of Status: YesAssessmentAssessmentModified barium swallow study 9426-2062: Patient presents with grossly withinfunctional limits rubin- pharyngeal swallow function DIGEST grade=0 (S0,E0). Noovert true physiological swallowing deficits noted. Lingual pumping appearsto be behavioral and related to self reported anxiety around swallowing.Patient with trace transient penetration with thin and nectar thick liquidsonly which appeared to be grossly ejected from the laryngeal vestibule duringthe swallow (variant of normal). No further penetration observed; noaspiration observed. At this time, recommend diet upgrade to regular solidsand maintain thin liquids pending standard aspiration and reflux precautionsat all times. Please discontinue PO diet and medications if decline inmental/neurological or respiratory status occurs. Control risk factors fordysphagia-related aspiration pneumonia via (a) oral hygiene >/=3x/day, and (b)increasing physical mobility as tolerated/able/applicable. ST to d/c patientfrom swallowing caseload at this time, please re-order/consult if change instatus occurs or if concerns arise.PrognosisGood potential to reach the established goalsPain Level0 out of 10Barriers to Mccracken and GoalsClinician Established GoalsLong Term Goals 3. Patient will demonstrate efficient breathing patterns to support vocal intensity and promote voice quality by 06/15/2024. 4. Patient will exhibit appropriate loudness levels to communicate across contexts by 06/15/2024. 5. Patient will identify and eliminate vocally abusive behaviors to improve vocal health by 06/15/2024. 6. Patient will implement strategies to improve vocal hygiene by 06/15/2024.Completed GoalsClinician Established GoalsLong Term Goals 1. Patient will complete a Modified Barium Met (05/26/ Swallow/Fiberoptic Endoscopic Evaluation of 2024) the Swallow to fully assess physiology andPATIENT NAME: NOLBERTO GARY anatomy of the swallow and to determine the appropriate diet and/or rehabilitation exercises by 06/15/2024. 2. Patient will safely manage oral intake of Met (05/26/ prescribed diet without signs/symptoms of 2024) aspiration by 06/15/2024.Signature(s)Electronically Signed By: Yaniv Patterson M.S., [facility]-INBOUND CUSTOMER SERVICE AGENT 05/26/2024, 4:17 PM (ET)Referring Physician SignatureI certify the need for these services furnished under this plan of treatment andwhileunder my care.Suly Schneider/Time at 1004PATIENT NAME: NOLBERTO GARY Warner Tubbs MD-26-May-2024 ? ? ? [facility] [address] [place] [address] PT Initial or ReEval POCPATIENT'S NAME: NOLBERTO GARY UNIT #: [id number]: [birth year] . PHYSICIAN:Ghislaine Mcnair MD PT TYPE: DIS INoADMISSION DATE: 05/25/24 ROOM #: V.987-O-JEivocui Name: NOLBERTO GARYMedical Record Number: [id number] Number: [id number] of Care: 05/25/2024Visits since start of care: 1Date: 05/26/2024Patient Date of : 1980Location: Inpatient Rehabilitation ServicesReason for Treatment: PTETreating Therapist: Mary Kate Gipson DPT [facility] Care Provider: Physician, NoReferashley Provider: Alfreda Hylton Initial Evaluation Plan of CareDiagnosisPlan Recommended Treatment Frequency and DurationFrequency: 0 time(s) per weekDuration: 0 Week(s)Patient returned To: BedPatient left with: call bellNeeds Within Reach: YesNursing Informed of Status: YesAssessmentAssessmentpatient admitted with left sided numbness to face . [place] for work. patient is independentwith all activities of daily living and gait without an assistive device anddemonstrates same prior level of function with reports of frequent musclecramping . AT this time patient does not require acute Physical Therapy as heis at his prior level of functionPrognosisExcellent potential to reach and maintain prior level of functionPain Level0 out of 10Signature(s)Electronically Signed By: Talita Gipson MS 05/26/2024, 11:17 AM (ET)PATIENT NAME: NOLBERTO GARY Physician SignatureI certify the need for these services furnished under this plan of treatment andwhileunder my care.Suly Schneider/Time at 1004PATIENT NAME: NOLBERTO GARY Darrell Rosario CUSTOMER SUCCESS DIRECTOR- ? ? ? [facility] ([facility])Neurology Progress NoteREPORT#:[id number] REPORT STATUS: SignedDATE:05/26/24 TIME: 0724PATIENT: NOLBERTO GARY UNIT #: [id number]#:[id number] [address] [birth year] AGE: 44 SEX: M ATTEND: Ghislaine Mcnair AUTHOR: Marlene Ramírez APRNREP SRV REP SRV JERRY: 0724* ALL edits or amendments must be made on the electronic/computer document *MARLENE RAMÍREZ APR 05/26/24 0724:SubjectiveChief complaint:left sided numbnessHPI:No new neurological events reported overnight; however, patient states feelinganxiousReview of SystemsPsych:Reports: anxiety.All systems rev neg: except as markedObjectiveGeneralVS:Last Documented: Result Date Time Pulse Ox 98 05/26 417 B/P 125/74 05/26 417 B/P Mean 91.0 05/26 417 O2 Delivery Room air 05/26 417 Temp 97.3 05/26 417 Pulse 61 05/26 417 Resp 18 05/26 417PATIENT WEIGHT:Weight (lb): 212Weight (oz): 4.88Weight (kg): 96.300MedicationsActive Meds + DC'd Last 24 HrsNicotine (NICODERM CQ PATCH) 7 MG DAILY TRANSDERM (CKD)Temazepam (RestoriL) 15 MG BEDTIME PRN PRN POAtorvastatin Calcium (LIPITOR) 40 MG BEDTIME POSodium Biphosphate (SODIUM PHOSPHATE IN MM) 15 MM ONCE ONE IV (DC) Sodium Chloride (SODIUM CHLORIDE 0.9%) 245 MLAcetaminophen (TYLENOL 325 MG UD) 650 MG Q6H PRN PRN POOndansetron HCl (ZOFRAN 4 MG VIAL) 4 MG Q6H PRN PRN IVSodium Biphosphate (SODIUM PHOSPHATE IN MM) 15 MM X1ED ONE IV (DC) Sodium Chloride (SODIUM CHLORIDE 0.9%) 250 MLSodium Chloride (SODIUM CHLORIDE 0.9%) 1,000 ML X1ED ONE IV (DC)Iopamidol (ISOVUE-370) 100 ML .STK-MED ONE IV (DC)Physical ExamGeneral appearance: alert, awake, orientedHead/Eyes: atraumatic, normocephalicENT: normal ear right, normal ear left, normal noseNeck: supple/no meningismus, no masses or swellingRespiratory: aerating well, no distressAbdomen: soft, no distentionExtremities: normal inspection, normal temperatureMusculoskeletal: normal inspection, painless range of motionNeuro/COMPLAINT INVESTIGATOR: alert, oriented X 4, normal speech, EOMI, PERRL, reflexes equal bilat, no motor deficits, no sensory deficits, no cerebellar deficitsNeuro comment:Anxious, AA, following commands PERRL, no focal weaknessSkin: dryResultsFindings/Data:Laboratory Tests 05/26 05/25 05/25 05/25 05/25 0537 1506 1506 0955 0955Chemistry Sodium (135 - 145 mmol/L) 139 138 Potassium (3.5 - 5.2 mmol/L) 4.7 3.6 Chloride (95 - 110 mmol/L) 107 106 Carbon Dioxide (19 - 34 mmol/L) 22 22 BUN (6 - 22 mg/dl) 9 10 Creatinine (0.43 - 1.13 mg/dL) 0.90 1.10 Est GFR (CKD-EPI 2020) (>/=90) >90 84 L Glucose (70 - 110 mg/dL) 87 104 Hemoglobin A1c (<5.7 %) 6.0 H Estim Average Glucose (<125 mg/dl) 126 H Calcium (8.4 - 10.2 mg/dL) 8.9 9.3 Phosphorus (2.3 - 5.0 mg/dL) 4.4 5.1 H <1.0 CL Magnesium (1.6 - 2.4 mg/dL) 2.0 Iron (35 - 150 ug/dL) 41 TIBC (260 - 400 mcg/dL) 445 H Iron Saturation (20 - 55 %) 9.0 L Total Bilirubin (0.1 - 1.2 mg/dL) 0.8 Conjugated Bilirubin (0.0 - 0.3 mg/dL) 0 Unconjugated Bilirubin (0.0 - 1.1 0.4mg/dL) AST (10 - 40 Units/L) 26 ALT (10 - 60 Units/L) 30 Total Alk Phosphatase (20 - 130 112Units/L) Troponin I (0.000 - 0.034 ng/mL) <0.012 Total Protein (5.5 - 8.7 g/dL) 7.7 Albumin (3.2 - 5.0 g/dL) 4.8 Triglycerides (0 - 150 mg/dL) 393 H Cholesterol (0 - 200 mg/dL) 260 H LDL Cholesterol (0 - 130 mg/dL) 148 H Non-HDL (LDL + VLDL) (() mg/dl) 227 HDL Cholesterol (0 - 60 mg/dL) 33 Heart Disease Risk Ratio (1.5 - 5.6) 7.9 H TSH (0.465 - 4.680 mcInU/mL) 1.050Laboratory Tests 05/25 0955 Coagulation PT (10.0 - 12.8 Seconds) 11.9 INR (0.8 - 1.1) 1.1 APTT (25 - 38 SECONDS) 33Laboratory Tests 05/26 05/25 0537 0955 Hematology WBC (4.0 - 10.5 10 3/u) 8.0 10.0 RBC (4.63 - 6.08 10 6/uL) 4.54 L 5.01 Hgb (13.7 - 17.5 G/DL) 10.4 L 11.3 L Hct (40.1 - 51.0 %) 33.8 L 36.6 L MCV (79.0 - 92.2 fl) 74.4 L 73.1 L MCH (25.7 - 32.2 pg) 22.9 L 22.6 L MCHC (32.3 - 36.5 g/dl) 30.8 L 30.9 L RDW (11.6 - 14.4 %) 16.9 H 16.5 H Plt Count (150 - 400 10 3/uL) 299 360 MPV (9.4 - 12.4 fl) 10.5 10.1 Nucleated RBC % (auto) (0.0 - 0.2 %) 0.0 0.0 Immature Gran % (0.0 - 0.4 %) 0.4 0.4 Immature Gran # (0.00 - 0.03 10 3/uL) 0.03 0.04 H Absolute Neutrophils (1.78 - 5.38 10 3/uL) 5.12 8.03 H Segmented Neutrophils (34.0 - 67.9 %) 64.4 80.6 H Lymphocytes (21.8 - 53.1 %) 25.5 12.7 L Lymphocytes # (1.32 - 3.57 10 3/uL) 2.03 1.26 L Monocytes (5.3 - 12.2 %) 7.9 5.4 Monocytes # (0.30 - 0.82 10 3/uL) 0.63 0.54 Eosinophils (0.8 - 7.0 %) 1.3 0.5 L Eosinophils # (0.04 - 0.54 10 3/uL) 0.10 0.05 Basophils (0.2 - 1.2 %) 0.5 0.4 Basophils # (0.01 - 0.08 10 3/uL) 0.04 0.04 Nucleated RBCs # (0.00 - 0.18 10 3/uL) 0.00 0.00Laboratory Tests 05/25 05/25 1141 0955 Toxicology Urine Opiates Screen (300 CUTOFF) Negative Ur Barbiturates Screen (200 CUTOFF) Negative Ur Phencyclidine Scrn (25 CUTOFF) Negative Ur Amphetamine Screen (1000 CUTOFF) Negative U Benzodiazepines Scrn (200 CUTOFF) Negative Urine Cocaine Screen (300 CUTOFF) Negative U Cannabinoids Screen (50 CUTOFF) Negative Plasma/Serum Alcohol (0 - 10 mg/dL) <10Radiology Data:Recent Impressions:CAT SCAN - CT STROKE BRAIN WO CONTRAST 05/25 949 Report Impression - Status: SIGNED Entered: 05/25/2024 1011IMPRESSION:No acute hemorrhage, mass effect, or midline shift. If clinicalconcern persists, MRI is recommended.Preliminary findings reported via iDiDiD application on at09:52 a.m.Workstation ID: [id number] M.D., staff radiologist, have reviewed theimages for this examination and the diagnostic interpretationprovided by Tatiana Lopez M.D., resident medical officer, and I am incomplete agreement with the findings.Impression By: MONICO Santacruz M.D.CAT SCAN - CT CERVICAL SPINE WO CONT 05/25 949 Report Impression - Status: SIGNED Entered: 05/25/2024 1038IMPRESSION:No acute fracture of the cervical spine. Degenerative changes asabove. If symptoms persist, further evaluation with MRI spine can beobtained, as clinically indicated.Workstation ID: [id number] Barcenas M.D., staff radiologist, have reviewed theimages for this examination and the diagnostic interpretationprovided by Tatiana Lopez M.D., resident medical officer, and I am incomplete agreement with the findings.Impression By: Jemima Riley.D.RADIOLOGY - CHEST STROKE AP PORT 05/25 1000 Report Impression - Status: SIGNED Entered: 05/25/2024 1040IMPRESSION:No radiographic evidence of acute cardiopulmonary abnormality.Workstation ID: [id number] M.D., staff radiologist, have reviewed theimages for this examination and the diagnostic interpretationprovided by Tatiana Lopez M.D., resident medical officer, and I am incomplete agreement with the findings.Impression By: MONICO Santacruz M.D.CAT SCAN - CT BRAIN PERFUSION 05/25 1000 Report Impression - Status: SIGNED Entered: 05/25/2024 1032IMPRESSION:CTA head: No aneurysm, occlusion or dissectionCTA neck: No significant stenosis, occlusion or dissection.CT perfusion: No suspicious perfusion defect.CTA imaging was analyzed by [employer] LVO ContaCT to enablecomputer-assisted triage and notification to rapidly detect a LVO andshorten time to notification.Workstation ID: [id number] By: DANIKA Miller M.D.CAT SCAN - CTA STROKE NECK W-WO CONT 05/25 1003 Report Impression - Status: SIGNED Entered: 05/25/2024 1032IMPRESSION:CTA head: No aneurysm, occlusion or dissectionCTA neck: No significant stenosis, occlusion or dissection.CT perfusion: No suspicious perfusion defect.CTA imaging was analyzed by [employer] LVO ContaCT to enablecomputer-assisted triage and notification to rapidly detect a LVO andshorten time to notification.Workstation ID: [id number] By: DANIKA Miller M.D.CAT SCAN - CTA STROKE HEAD W-WO CONT 05/25 1003 Report Impression - Status: SIGNED Entered: 05/25/2024 1032IMPRESSION:CTA head: No aneurysm, occlusion or dissectionCTA neck: No significant stenosis, occlusion or dissection.CT perfusion: No suspicious perfusion defect.CTA imaging was analyzed by [employer] LVO ContaCT to enablecomputer-assisted triage and notification to rapidly detect a LVO andshorten time to notification.Workstation ID: [id number] By: DANIKA Miller M.D.Results: vital signs reviewed, CT results reviewed, current med profile rev'dTreatment ProphylaxisIV Thrombolytic TherapyExclusion criteria: Prior Stroke/3 months, LKW > 4.5 hrs of UnknownDiagnosis, Assessment PlanProblem List/A P: 1. History of cervical spinal surgery 2. Hypophosphatemia 3. ParesthesiaFree Text A P:44 yo M past medical history of Cervical fusion, Essential tremors,Hyperlipidemia and Hypertension (not on any medications) who presented [facility] with left- sided numbness onset this AM at around 0930. 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 Onarrival, stroke alert activated; NIHSS of 1 for sensation impairment. Strokeimages revealing no ICH, no LVO. Labs remarkable for hypophosphatemia (<1.0).MRI Brain revealing no evidence of acute infarct or restricted diffusion.On examination, patient AAO, following commands, no focal weakness. Reportsresolution of symptoms. From our standpoint, he is clear for dischargeImpression:- Face paresthesia r/t electrolyte imbalances vs anxiety- Hx of Cervical fusion- Hx of Essential tremorsPlan:- Correct offending factors- High dose statin unless contraindicated- Optimal BP control- Cardiac telemetry- PT/OT/STThank you for the consult. Neurology will clear for dischargeConsultants: neurologyPlan discussed with: patient, interdisc care teamTime spent: Time spent on patient care (minutes): 35Quality: Gen Med Crit CareCurrent MedicationsCurrent medication review:I attest that the foregoing medication list in the medical record is true,accurate, and complete to the best of my knowledge.AttestationsAttestation needed: supervising physicianVALENTIN MARINO MD 06/11/24 1553:AttestationsPhysician AttestationAgree w/findings plan:I saw and evaluated the patient with the neurology team. I agree with thefindings and plan as documented above. at 1811 at 1554RPT #: [id number] OF REPORT Warner Tubbs MD-25-May-2024 ? ? ? [facility] [address] [place] [address] ST Initial or ReEval POCPATIENT'S NAME: NOLBERTO GARY UNIT #: [id number]: 78 . PHYSICIAN:Ghislaine Mcnair MD PT TYPE: DIS INoADMISSION DATE: 05/25/24 ROOM #: V.331-[id number] Name: NOLBERTO GARYMedical Record Number: [id number] Number: [id number] of Care: 05/25/2024Visits since start of care: 1Date: 05/25/2024Patient Date of : 1980Location: Inpatient Rehabilitation ServicesReason for Treatment: DYSE+ SPLE (NPO)Treating Therapist: Sadia Rojo ,Primary Care Provider: Physician, NoReferring Provider: Berta Hylton-Language Pathology Initial Evaluation Plan of CareDiagnosisPlan Planned Interventions [id number] - [id number] - EVALUATE [id number] - [id number] - ORAL FUNCTION [id number] - [id number] - MOTION FLUOROSCOPY/[id number] - 20935 - SPEECH/HEARING [id number] - 72936 - SPEECH SOUND LANGCOMPREHEN Recommended Treatment Frequency and DurationFrequency: 1 time(s) per dayFrequency Notes: 2-4x/weekDuration: 4 Week(s) Swallowing Recommendations and PrecautionsMethod of POIntake:Diet Texture: Mechanical soft/Soft and bite sized (6)Liquid Thin (0)Consistency:Positioning: Upright 90 degreesMed Present in pureePrecautions:Oral Care: Frequent and thoroughOther Standard aspiration precautions, General refluxPATIENT NAME: NOLBERTO GARY : precautions, Alternate solids/liquids, Small sips and bites when eating, Slow rate; swallow between bites, 1:1 distant supervision, Feed only when alert, Reduce distractions Other Clinical RecommendationsRecommended Videofluoroscopic Swallowing StudyAssessments: (MBSS)Needs Within Reach: YesNursing Informed of Status: YesAssessmentAssessmentDysphagia evaluation: Patient pleasant and seen at bedside. Patient reports hehas had difficulty swallowing [id number] however reports consuming regularsolids and thin liquids at baseline. Patient has not had any intervention byan speech-language pathologist in the past. Patient reports prior to thishospital admission he was experiencing signs/symptoms of inability to swallow,per patient he said I couldn't swallow it's like I was having a muscle spasmand being stabbed with little needles Speech-language pathologistadministered PO trials of puree and regular solids with thin liquids via cupsip. Patient did not exhibit any signs/symptoms of aspiration. Recommendpatient initiate PO diet of soft- bite size solids and thin liquids followingSTRICT aspiration and gastroesophageal reflux disease precautions withstringent oral care routine. Discontinue PO diet if any change in mentationand/or pulmonary imaging. Recommend patient complete a modified barium swallowstudy due to patient report of difficulty swallowing to rule out aspirationand identify least restrictive diet. Speech-language pathologist will f/u.Speech/language evaluation: Patient oriented to all concepts. Patient exhibitsexpressive and receptive language skills within normal limits. Patient reportsa hx of hoarse breathy vocal quality especially during evening hours, at timespatient reported he felt SOB. Patient stated he has a hx of asthma howeverdoes not take anything for it at the moment. Patient stated prior to thishospital admission his voice was twingy speech- language pathologistprompted patient to describe patient reporting signs/symptoms of hoarsebreathy vocal quality. Patient is intelligible, however will benefit fromcommunication strategies to increase vocal hygiene and decrease signs/symptomsof hoarse/breathy vocal quality. Speech- language pathologist will f/u forongoing treatment.PrognosisGood potential to reach the established goalsPain Level0 out of 10Barriers to Mccracken and GoalsClinician Established GoalsLong Term Goals 1. Patient will complete a Modified Barium Swallow/Fiberoptic Endoscopic Evaluation of the Swallow to fully assess physiology andPATIENT NAME: NOLBERTO GARY anatomy of the swallow and to determine the appropriate diet and/or rehabilitation exercises by 06/15/2024. 2. Patient will safely manage oral intake of prescribed diet without signs/symptoms of aspiration by 06/15/2024. 3. Patient will demonstrate efficient breathing patterns to support vocal intensity and promote voice quality by 06/15/2024. 4. Patient will exhibit appropriate loudness levels to communicate across contexts by 06/15/2024. 5. Patient will identify and eliminate vocally abusive behaviors to improve vocal health by 06/15/2024. 6. Patient will implement strategies to improve vocal hygiene by 06/15/2024.Signature(s)Electronically Signed By: Sadia Rojo 05/25/2024, 3:58 PM (ET)Referring Physician SignatureI certify the need for these services furnished under this plan of treatment andwhileunder my care.Suly HyltonDate/Time at 1004PATIENT NAME: NOLBERTO GARY Warner Tubbs MD-25-May-2024 ? ? ? [facility] ([facility])History Physical - AdultREPORT#:[id number] REPORT STATUS: SignedDATE:05/25/24 TIME: 1054PATIENT: NOLBERTO GARY UNIT #: [id number]#:[id number] [address]ADOB: [birth year] AGE: 44 SEX: M ATTEND: Suly Hylton MDADM AUTHOR: Suly Hylton MDREP SRV REP SRV JERRY: 1054* ALL edits or amendments must be made on the electronic/computer document *History of Present IllnessHPIChief complaint:Bilateral facial numbness with left upper extremity tingling and numbnessPCP:PCP: No Primary or Family PhysicianHPI:The patient is a 44 yo M past medical history of hyperlipidemia and hypertensionnot on any medications since his blood pressure was well controlled who presenedto the ED via ground EMS with left-sided numbness onset this AM at around 0930.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 Patient Denies headache, dizziness, weakness chest pain, shortness abreath, losing bowel or bladder control.HistoryPast medical history:Reports: Hypertension.Additional surgical history:Neck surgeryAdditional family history:Mother and father hypertensionFather heart attack around 30sGrandmother diabetesAlcohol use: Denies EtOH useDrug use: Denies recreational drugsSmoking status for patients 13 years old or older: Current every day smoker (Vaping every day)Other social history: Good social supportMedication/Allergy-Vaccine HxAllergies:Coded Allergies:No Known Allergies (05/25/24)Occupation:Truck driverReview of Cognovant systems rev neg: except as markedPhysical ExamVS/I OVital Signs: Date Time Temp Pulse Resp B/P B/P Pulse O2 O2 Flow FiO2 Mean Ox Delivery Rate 05/25 1029 97.7 71 14 133/83 99 Room air 05/25 1020 72 25 133/83 103 100 05/25 0947 80 151/85 111 100PATIENT WEIGHT:Weight (lb):Weight (oz):Weight (kg): 96.300General appearance: alert, awake, oriented, no acute distressHead/Eyes: atraumatic, clear cornea, EOMI, normocephalic, PERRLAENT: moist mucosal membranes, normal nose, normal pharynxNeck: full range of motion, non- tender, no lymphadenopathy, supple/nomeningismusCardiovascular: normal capillary refill, regular rate rhythmRespiratory: clear to auscultation, no distress, no tendernessAbdomen/GI: active bowel sounds, soft, non-tender, no guarding, no rebound,normal abdominal aortaExtremities: moves all, no edema-all extremities, normal capillary refill,normal range of motion, normal sensory, normal motor functionMusculoskeletal: full range of motion, normal inspectionNeuro/COMPLAINT INVESTIGATOR: alert, oriented X 3, normal speech, no motor deficits, CNII-XIIgrossly intact, Bilateral facial numbness under orbits and around nose labialsSkin: dry, intact, no gross abnormalitiesPsychiatry: no hallucinations, normal affect, normal judgment/insight, normalmood, not homicidal, not suicidalResultsFindings/Data:Laboratory Tests: 05/25 0955 Chemistry Sodium (135 - 145 mmol/L) 138 Potassium (3.5 - 5.2 mmol/L) 3.6 Chloride (95 - 110 mmol/L) 106 Carbon Dioxide (19 - 34 mmol/L) 22 BUN (6 - 22 mg/dl) 10 Creatinine (0.43 - 1.13 mg/dL) 1.10 Est GFR (CKD-EPI 2020) (>/=90) 84 L Glucose (70 - 110 mg/dL) 104 Calcium (8.4 - 10.2 mg/dL) 9.3 Phosphorus (2.3 - 5.0 mg/dL) <1.0 CL Magnesium (1.6 - 2.4 mg/dL) 2.0 Total Bilirubin (0.1 - 1.2 mg/dL) 0.8 Conjugated Bilirubin (0.0 - 0.3 mg/dL) 0 Unconjugated Bilirubin (0.0 - 1.1 mg/dL) 0.4 AST (10 - 40 Units/L) 26 ALT (10 - 60 Units/L) 30 Total Alk Phosphatase (20 - 130 Units/L) 112 Troponin I (0.000 - 0.034 ng/mL) <0.012 Total Protein (5.5 - 8.7 g/dL) 7.7 Albumin (3.2 - 5.0 g/dL) 4.8 Coagulation PT (10.0 - 12.8 Seconds) 11.9 INR (0.8 - 1.1) 1.1 APTT (25 - 38 SECONDS) 33 Hematology WBC (4.0 - 10.5 10 3/u) 10.0 RBC (4.63 - 6.08 10 6/uL) 5.01 Hgb (13.7 - 17.5 G/DL) 11.3 L Hct (40.1 - 51.0 %) 36.6 L MCV (79.0 - 92.2 fl) 73.1 L MCH (25.7 - 32.2 pg) 22.6 L MCHC (32.3 - 36.5 g/dl) 30.9 L RDW (11.6 - 14.4 %) 16.5 H Plt Count (150 - 400 10 3/uL) 360 MPV (9.4 - 12.4 fl) 10.1 Nucleated RBC % (auto) (0.0 - 0.2 %) 0.0 Immature Gran % (0.0 - 0.4 %) 0.4 Immature Gran # (0.00 - 0.03 10 3/uL) 0.04 H Absolute Neutrophils (1.78 - 5.38 10 3/uL) 8.03 H Segmented Neutrophils (34.0 - 67.9 %) 80.6 H Lymphocytes (21.8 - 53.1 %) 12.7 L Lymphocytes # (1.32 - 3.57 10 3/uL) 1.26 L Monocytes (5.3 - 12.2 %) 5.4 Monocytes # (0.30 - 0.82 10 3/uL) 0.54 Eosinophils (0.8 - 7.0 %) 0.5 L Eosinophils # (0.04 - 0.54 10 3/uL) 0.05 Basophils (0.2 - 1.2 %) 0.4 Basophils # (0.01 - 0.08 10 3/uL) 0.04 Nucleated RBCs # (0.00 - 0.18 10 3/uL) 0.00 Toxicology Plasma/Serum Alcohol (0 - 10 mg/dL) <10Radiology data:Recent Impressions:CAT SCAN - CT STROKE BRAIN WO CONTRAST 05/25 949 Report Impression - Status: SIGNED Entered: 05/25/2024 1011IMPRESSION:No acute hemorrhage, mass effect, or midline shift. If clinicalconcern persists, MRI is recommended.Preliminary findings reported via iDiDiD application on at09:52 a.m.Workstation ID: [id number] M.D., staff radiologist, have reviewed theimages for this examination and the diagnostic interpretationprovided by Tatiana Lopez M.D., resident medical officer, and I am incomplete agreement with the findings.Impression By: MONICO Santacruz M.D.CAT SCAN - CT CERVICAL SPINE WO CONT 05/25 949 Report Impression - Status: SIGNED Entered: 05/25/2024 1038IMPRESSION:No acute fracture of the cervical spine. Degenerative changes asabove. If symptoms persist, further evaluation with MRI spine can beobtained, as clinically indicated.Workstation ID: [id number] M.D., staff radiologist, have reviewed theimages for this examination and the diagnostic interpretationprovided by Tatiana Lopez M.D., resident medical officer, and I am incomplete agreement with the findings.Impression By: MONICO Santacruz M.D.RADIOLOGY - CHEST STROKE AP PORT 05/25 1000 Report Impression - Status: SIGNED Entered: 05/25/2024 1040IMPRESSION:No radiographic evidence of acute cardiopulmonary abnormality.Workstation ID: [id number], Mikael Santacruz M.D., staff radiologist, have reviewed theimages for this examination and the diagnostic interpretationprovided by Tatiana Lopez M.D., resident medical officer, and I am incomplete agreement with the findings.Impression By: MONICO Santacruz M.D.CAT SCAN - CT BRAIN PERFUSION 05/25 1000 Report Impression - Status: SIGNED Entered: 05/25/2024 1032IMPRESSION:CTA head: No aneurysm, occlusion or dissectionCTA neck: No significant stenosis, occlusion or dissection.CT perfusion: No suspicious perfusion defect.CTA imaging was analyzed by Arcot SystemsAi LVO ContaCT to enablecomputer-assisted triage and notification to rapidly detect a LVO andshorten time to notification.Workstation ID: [id number] By: DANIKA Miller M.D.CAT SCAN - CTA STROKE NECK W-WO CONT 05/25 1003 Report Impression - Status: SIGNED Entered: 05/25/2024 1032IMPRESSION:CTA head: No aneurysm, occlusion or dissectionCTA neck: No significant stenosis, occlusion or dissection.CT perfusion: No suspicious perfusion defect.CTA imaging was analyzed by [employer] LVO ContaCT to enablecomputer-assisted triage and notification to rapidly detect a LVO andshorten time to notification.Workstation ID: [id number] By: DANIKA Miller M.D.CAT SCAN - CTA STROKE HEAD W-WO CONT 05/25 1003 Report Impression - Status: SIGNED Entered: 05/25/2024 1032IMPRESSION:CTA head: No aneurysm, occlusion or dissectionCTA neck: No significant stenosis, occlusion or dissection.CT perfusion: No suspicious perfusion defect.CTA imaging was analyzed by [employer] SystemsAi LVO ContaCT to enablecomputer-assisted triage and notification to rapidly detect a LVO andshorten time to notification.Workstation ID: [id number] By: DANIKA Miller M.D.Results: labs reviewed, vital signs reviewed, CT results reviewed, current medprofile rev'dDiagnosis, Assessment PlanPlan discussed with: patient, consultants, nurseFree Text DxA P NotesFree Text DxA P Notes://Dysphonia, Bilateral facial numbness, left upper extremity numbness rule outacute stroke versus TIA versus electrolyte abnormality//Hypophosphatemia//Stroke alert-Admit to neuro skvd-qwos-Aixbnhdtt monitoring-Neuro check q.4 hours-CT brain, cervical spine, CT angio head and neck reviewed, no acute finding-Risk stratification, lipid profile, hemoglobin A1c, TSH-Drug urine screen-MRI brain stat-Echocardiogram stat-Replete phosphate, follow phosphate level-Neurology consulted, will follow recommendation-Neuro IR consulted, will follow recommendation-PT/OT/speech and swallow evaluation-Discussed with neuro team, no need for antiplt at this moment//History of vaping every day-The patient was questioned regarding their smoking habits, and I havedetermined, as the patient's treating physician, that there is a medicalnecessity in regards to the patient's medical condition to provide smokingcessation program education. The patient was advised to stop smoking andcounseled for a period of greater than 10 minutes. The patient was instructed tofollow up with a primary care physician for smoking cessation and giveninformation regarding local smoking cessation programs in the area. The patientreceived detailed discharge instructions as to how to stop smoking. The patientexpressed an understanding of the need to follow up and the plan for smokingcessation.//Microcytic anemiaFollow H HIron profile ordered//DVT PPXSCD for nowQuality: Gen Med Crit CareCurrent MedicationsCurrent medication review:I attest that the foregoing medication list in the medical record is true,accurate, and complete to the best of my knowledge. at 2318RPT #: [id number] OF REPORT Darrell Marlene ? ? ? [facility] ([facility])Neurology Consultation NoteREPORT#:[id number] REPORT STATUS: SignedDATE:05/25/24 TIME: 1026PATIENT: NOLBERTO GARY UNIT #: [id number]#:[id number] [address]OB: [birth year] AGE: 44 SEX: M ATTEND: Melonie Mcnairanna MDADM AUTHOR: DarrellMichaelmalachi APRNREP SRV REP SRV JERRY: 1026* ALL edits or amendments must be made on the electronic/computer document *RAMÍREZMARLENE APR 05/25/24 1026:History of Present IllnessStroke AlertLast known normal: Date: 05/25/24 Time: 944Stroke team activated: yesConsidered stroke alert: yesHPIReason for consult:stroke alertChief complaint:left sided numbnessHPI:44 yo M past medical history of Cervical fusion, Essential tremors,Hyperlipidemia and Hypertension (not on any medications) who [facility] with left-sided numbness onset this AM at around 0930. 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 Onarrival, stroke alert activated; NIHSS of 1 for sensation impairment.History - Adult longitudinalPast medical history:Reports: Hypertension.Other social history: Good social supportAllergies:Coded Allergies:No Known Allergies (05/25/24)Occupation:Truck driverReview of SystemsConstitutional:Denies: lethargy, malaise.Skin:Denies: rash, swelling.Allergy/Immun:Denies: rhinorrhea, sneezing.Eyes:Denies: diplopia, photophobia.ENT:Denies: hearing loss, nasal congestion.Respiratory:Denies: SOB, wheezing.Cardiovascular:Denies: chest pain, palpitations.GI:Denies: constipation, diarrhea, nausea.:Denies: dysuria, flank pain.Musculoskeletal:Denies: myalgias, neck pain.Heme:Denies: bruising, petechiae.Endocrine:Denies: weight gain, weight loss.Neuro:Reports: numbness (left sided). Denies: confusion, dizziness, headache,lightheaded, slurred speech.ObjectiveGeneralVS:Last Documented: Result Date Time Pulse Ox 99 05/25 1029 B/P 133/83 05/25 1029 O2 Delivery Room air 05/25 1029 Temp 97.7 05/25 1029 Pulse 71 05/25 1029 Resp 14 05/25 1029 B/P Mean 103 05/25 1020PATIENT WEIGHT:Weight (lb):Weight (oz):Weight (kg): 96.300MedicationsActive Meds + DC'd Last 24 HrsAcetaminophen (TYLENOL 325 MG UD) 650 MG Q6H PRN PRN POOndansetron HCl (ZOFRAN 4 MG VIAL) 4 MG Q6H PRN PRN IVSodium Biphosphate (SODIUM PHOSPHATE IN MM) 15 MM X1ED ONE IV Sodium Chloride (SODIUM CHLORIDE 0.9%) 250 MLSodium Chloride (SODIUM CHLORIDE 0.9%) 1,000 ML X1ED ONE IVIopamidol (ISOVUE-370) 100 ML .STK- MED ONE IV (DC)Physical ExamGeneral appearance: (anxious), alert, awakeHead/Eyes: atraumatic, normocephalicENT: normal ear right, normal ear left, normal noseNeck: supple/no meningismus, no masses or swellingRespiratory: aerating well, no distressAbdomen: soft, no distentionExtremities: normal inspection, normal temperatureMusculoskeletal: normal inspection, painless range of motionNeuro/COMPLAINT INVESTIGATOR: sensory deficit, alert, oriented X 4, EOMI, PERRL, reflexes equalbilat, no motor deficits, no cerebellar deficitsNeuro comment:Anxious, AA, following commands PERRL, sensation impairmentSkin: dryResultsFindings/Data:Laboratory Tests 05/25 0955 Chemistry Sodium (135 - 145 mmol/L) 138 Potassium (3.5 - 5.2 mmol/L) 3.6 Chloride (95 - 110 mmol/L) 106 Carbon Dioxide (19 - 34 mmol/L) 22 BUN (6 - 22 mg/dl) 10 Creatinine (0.43 - 1.13 mg/dL) 1.10 Est GFR (CKD-EPI 2020) (>/=90) 84 L Glucose (70 - 110 mg/dL) 104 Calcium (8.4 - 10.2 mg/dL) 9.3 Phosphorus (2.3 - 5.0 mg/dL) <1.0 CL Magnesium (1.6 - 2.4 mg/dL) 2.0 Total Bilirubin (0.1 - 1.2 mg/dL) 0.8 Conjugated Bilirubin (0.0 - 0.3 mg/dL) 0 Unconjugated Bilirubin (0.0 - 1.1 mg/dL) 0.4 AST (10 - 40 Units/L) 26 ALT (10 - 60 Units/L) 30 Total Alk Phosphatase (20 - 130 Units/L) 112 Troponin I (0.000 - 0.034 ng/mL) <0.012 Total Protein (5.5 - 8.7 g/dL) 7.7 Albumin (3.2 - 5.0 g/dL) 4.8Laboratory Tests 05/25 0955 Coagulation PT (10.0 - 12.8 Seconds) 11.9 INR (0.8 - 1.1) 1.1 APTT (25 - 38 SECONDS) 33Laboratory Tests 05/25 0955 Hematology WBC (4.0 - 10.5 10 3/u) 10.0 RBC (4.63 - 6.08 10 6/uL) 5.01 Hgb (13.7 - 17.5 G/DL) 11.3 L Hct (40.1 - 51.0 %) 36.6 L MCV (79.0 - 92.2 fl) 73.1 L MCH (25.7 - 32.2 pg) 22.6 L MCHC (32.3 - 36.5 g/dl) 30.9 L RDW (11.6 - 14.4 %) 16.5 H Plt Count (150 - 400 10 3/uL) 360 MPV (9.4 - 12.4 fl) 10.1 Nucleated RBC % (auto) (0.0 - 0.2 %) 0.0 Immature Gran % (0.0 - 0.4 %) 0.4 Immature Gran # (0.00 - 0.03 10 3/uL) 0.04 H Absolute Neutrophils (1.78 - 5.38 10 3/uL) 8.03 H Segmented Neutrophils (34.0 - 67.9 %) 80.6 H Lymphocytes (21.8 - 53.1 %) 12.7 L Lymphocytes # (1.32 - 3.57 10 3/uL) 1.26 L Monocytes (5.3 - 12.2 %) 5.4 Monocytes # (0.30 - 0.82 10 3/uL) 0.54 Eosinophils (0.8 - 7.0 %) 0.5 L Eosinophils # (0.04 - 0.54 10 3/uL) 0.05 Basophils (0.2 - 1.2 %) 0.4 Basophils # (0.01 - 0.08 10 3/uL) 0.04 Nucleated RBCs # (0.00 - 0.18 10 3/uL) 0.00Laboratory Tests 05/25 0955 Toxicology Plasma/Serum Alcohol (0 - 10 mg/dL) <10Radiology Data:Recent Impressions:CAT SCAN - CT STROKE BRAIN WO CONTRAST 05/25 949 Report Impression - Status: SIGNED Entered: 05/25/2024 1011IMPRESSION:No acute hemorrhage, mass effect, or midline shift. If clinicalconcern persists, MRI is recommended.Preliminary findings reported via iDiDiD application on at09:52 a.m.Workstation ID: [id number] M.D., staff radiologist, have reviewed theimages for this examination and the diagnostic interpretationprovided by Tatiana Lopez M.D., resident medical officer, and I am incomplete agreement with the findings.Impression By: MONICO Santacruz M.D.CAT SCAN - CT CERVICAL SPINE WO CONT 05/25 949 Report Impression - Status: SIGNED Entered: 05/25/2024 1038IMPRESSION:No acute fracture of the cervical spine. Degenerative changes asabove. If symptoms persist, further evaluation with MRI spine can beobtained, as clinically indicated.Workstation ID: [id number] M.D., staff radiologist, have reviewed theimages for this examination and the diagnostic interpretationprovided by Tatiana Lopez M.D., resident medical officer, and I am incomplete agreement with the findings.Impression By: MONICO Santacruz M.D.RADIOLOGY - CHEST STROKE AP PORT 05/25 1000 Report Impression - Status: SIGNED Entered: 05/25/2024 1040IMPRESSION:No radiographic evidence of acute cardiopulmonary abnormality.Workstation ID: [id number] M.D., staff radiologist, have reviewed theimages for this examination and the diagnostic interpretationprovided by Tatiana Lopez M.D., resident medical officer, and I am incomplete agreement with the findings.Impression By: MONICO Santacruz M.D.CAT SCAN - CT BRAIN PERFUSION 05/25 1000 Report Impression - Status: SIGNED Entered: 05/25/2024 1032IMPRESSION:CTA head: No aneurysm, occlusion or dissectionCTA neck: No significant stenosis, occlusion or dissection.CT perfusion: No suspicious perfusion defect.CTA imaging was analyzed by [employer] LVO ContaCT to enablecomputer-assisted triage and notification to rapidly detect a LVO andshorten time to notification.Workstation ID: [id number] By: DANIKA Miller M.D.CAT SCAN - CTA STROKE NECK W-WO CONT 05/25 1003 Report Impression - Status: SIGNED Entered: 05/25/2024 1032IMPRESSION:CTA head: No aneurysm, occlusion or dissectionCTA neck: No significant stenosis, occlusion or dissection.CT perfusion: No suspicious perfusion defect.CTA imaging was analyzed by [employer] Systems[employer] LVO ContaCT to enablecomputer-assisted triage and notification to rapidly detect a LVO andshorten time to notification.Workstation ID: [id number] By: DANIKA Miller M.D.CAT SCAN - CTA STROKE HEAD W-WO CONT 05/25 1003 Report Impression - Status: SIGNED Entered: 05/25/2024 1032IMPRESSION:CTA head: No aneurysm, occlusion or dissectionCTA neck: No significant stenosis, occlusion or dissection.CT perfusion: No suspicious perfusion defect.CTA imaging was analyzed by [employer] LVO ContaCT to enablecomputer-assisted triage and notification to rapidly detect a LVO andshorten time to notification.Workstation ID: [id number] By: DANIKA Miller M.D.Results: vital signs reviewed, CT results reviewed, current med profile rev'dScores - NeuroNIH Stroke ScaleNIHSS applicable: YesNIHSS NIHSS Response Value Level of consciousness: Alert and responsive (0) 0 Ask month age: Both questions right (0) 0 Blink eyes/squeeze hands: Performs both tasks (0) 0 Horizontal EOM: NL side/side eye mvmt (0) 0 Visual andres: No visual loss (0) 0 Facial palsy: Normal symmetry (0) 0 Right arm motor drift (10s) No drift 10 sec (0) 0 Left arm motor drift (10s) No drift 10 sec (0) 0 Right leg motor drift (5s) No drift 5 sec (0) 0 Left leg motor drift (5s) No drift 5 sec (0) 0 Limb ataxia FNF/Heel-Olivier No ataxia (0) 0 Sensation (arms/legs/face): Pinprick less sharp (1) 1 Language aphasia: No aphasia, normal (0) 0 Dysarthria: No dysarthria (0) 0 Extinction/inattention: No extinct/inattent (0) 0 Total 1Diagnosis, Assessment PlanProblem List/A P: 1. History of cervical spinal surgery 2. Stroke-like symptom 3. HypophosphatemiaConsultants: neurologyPlan discussed with: patient, interdisc care teamTime spent: Time spent on patient care (minutes): 45Free Text DxA P NotesFree text DxA P notes:44 yo M past medical history of Cervical fusion, Essential tremors,Hyperlipidemia and Hypertension (not on any medications) who presented to the [facility] 05[facility]25 with left-sided numbness onset this AM at around 0930. 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 Onarrival, stroke alert activated; NIHSS of 1 for sensation impairment. Strokeimages revealing no ICH, no LVO. Labs remarkable for hypophosphatemia (<1.0).Based on these findings, we are concerned primarily for stroke like symptoms r/telectrolyte imbalances vs cervical stenosis, less likely acute strokepresentation. Recommending electrolyte correction and MRI Brain. The rest ofrecommendations listed below.Impression:- Stroke like symptoms r/t electrolyte imbalances vs less likely acute stroke- Hx of Cervical fusion- Hx of Essential tremorsPlan:- Correct offending factors- Labs: Coagulation panel, TSH, A1C, Lipid panel, UA- CT Cervical spine WO- MRI Brain WO- 2D Echo- High dose statin unless contraindicated- Cardiac telemetry- PT/OT/STThank you for the consult. Neurology will continue to followAttestationsAttestation needed: supervising physicianVALENTIN MARINO MD 06/11/24 1553:AttestationsPhysician AttestationAgree w/findings plan:I saw and evaluated the patient with the neurology team. I agree with thefindings and plan as documented above. at 1918 at 1553RPT #: [id number] OF REPORT [id number] ? ? ? [facility] ([facility])EMERGENCY PROVIDER REPORTREPORT#:[id number] REPORT STATUS: SignedDATE:05/25/24 TIME: 09PATIENT: NOLBERTO GARY UNIT #: [id number]#: [id number] [address]OB[address] [birth year] AGE: 44 SEX: M PCP PHYS: No Primary or Family PhysicianSERVICE AUTHOR: Wellington Frye MD R3RPT SRV REP SRV TM: 0944* ALL edits or amendments must be made on the electronic/computer document *WELLINGTON FRYE 05/25/24 0944:HPI-Stroke/CVAFree Text HPI NotesFree Text HPI NotesThe patient is a 44 yo M who presents to the ED via ground EMS with left-sidednumbness onset this AM at around 0930. 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 Patient reportsnumbness of left-sided face, arm, and leg. Denies weakness. Only other symptomis intermittent/vairable dysphonia that onset yesterday evening. LKW yesterdayevening prior to onset of dysphonia, numbness onset at 0930 this AM.Stroke alert called at 0943 upon initial evaluation.GeneralConfirmed Patient YesPatient Type New patientInitial Greet Date/Time 05/25/24 0941PresentationChief Comp: Left Side Numbness, face, Numbness, arm, Numbness, leg)( Last Known Well )( Time 1999 Date 05/24/24Hx Obtained From Patient)( Progression since Onset ConstantRisk-Stroke/CVARisk Stratification)( Initial NIH Stroke Scale )( Initial NIH Stroke Scale Response Value NIHSS Applicable? Yes 0 Level of Consciousness Alert and responsive (0) 0 Ask Month Age Both questions right (0) 0 Blink Eyes/Squeeze Hands Performs both tasks (0) 0 Horizontal EOM NL side/side eye mvmt (0) 0 Visual Andres No visual loss (0) 0 Facial Palsy Normal symmetry (0) 0 Right Arm Motor Drift (10s) No drift 10 sec (0) 0 Left Arm Motor Drift (10s) No drift 10 sec (0) 0 Right Leg Motor Drift (5s) No drift 5 sec (0) 0 Left Leg Motor Drift (5s) No drift 5 sec (0) 0 Limb Ataxia FNF/Heel-Olivier No ataxia (0) 0 Sensation (Arms/Legs/Face) Pinprick less sharp (1) 1 Language Aphasia No aphasia, normal (0) 0 Dysarthria No dysarthria (0) 0 Extinction/Inattention No extinct/inattent (0) 0 Total 1NIH Stroke Score Timing Time 0943 Date 05/25/24Stroke Risk factors reviewed, No risk factorsGlasgow Coma Score: Copyright [facility] Copyright [facility] Sanket [place] Eye opening: (4) Spontaneous Verbal response: (5) Oriented Best motor response: (6) Obeys commands GCS Score: 15Intracranial Bleed Risk factors reviewed)( Modified Tipton Scale 1- No signif disabilityReview of SystemsROS StatementsAll systems rev neg except as marked.Focused Review of SystemsEars/Nose/ThroatReports: Voice change.NeurologicReports: Numbness.PMH-Stroke/CVAStated Complaint LEFT SIDED NUMBNESS TO FACE BSO 7Review of Nursing Notes Rev avail, and agree, Triage notes reviewedPt reports no significant: Past medical history, Past surgical history, Familyhistory, Social historyPhysical ExamVital SignsVital SignsFirst Documented: Result Date Time Pulse Ox 100 05/25 0947 B/P 151/85 05/25 0947 B/P Mean 111 05/25 0947 Pulse 80 05/25 0947 Resp 25 05/25 1020 O2 Delivery Room air 05/25 1029 Temp 97.7 05/25 1029Last Documented: Result Date Time Pulse Ox 99 05/25 1029 B/P 133/83 05/25 1029 O2 Delivery Room air 05/25 1029 Temp 97.7 05/25 1029 Pulse 71 05/25 1029 Resp 14 05/25 1029 B/P Mean 103 05/25 1020Focused PEGeneral/Const General/Const Awake, Alert, No acute distress, Well appearing, Cooperative,Not toxic appearingMS Head Head Atraumatic, NormocephalicEyes Eyes Atraumatic, PERRL, EOMI, No nystagmusEars/Nose/Throat Ears/Nose/Throat Atraumatic, Airway patent, Mucous membranes moistMS Neck Neck Atraumatic, Supple, No meningismusResp/Chest Respiratory/Chest Atraumatic, Breath sounds NL, Breath sounds = bilat, Norespiratory distressCardiovascular Cardiovascular Heart rate NL, Regular rhythm, Heart sounds NL, No murmurs,Pulses = bilaterallyAbdomen/GI Abdomen/GI Atraumatic, Soft, Non-tenderMS Upper Extrem Upper Extremity/MS Atraumatic, Vascular intactMS Lower Extrem Lower Ext/Pelvis/MS Atraumatic, Vascular intactSkin Skin Warm, Dry, IntactNeurologic Neurologic Oriented X3, Speech NL, No motor deficits, CN II - XII intact,Cerebellar NL, Memory NL, Gait NL, Diminished sensation left-sided face, upperand lower extremity. Diffuse mild tremuolousness.Psychiatric Psychiatric Anxious moodInterpretation DiagnosticsLab Results InterpretationConsiderations Independ review imaging, Reviewed prior recordsResultsLaboratory Tests05/25/24954:[Embedded Image Not Available]Laboratory Tests: 05/25 0955 Chemistry Sodium (135 - 145 mmol/L) 138 Potassium (3.5 - 5.2 mmol/L) 3.6 Chloride (95 - 110 mmol/L) 106 Carbon Dioxide (19 - 34 mmol/L) 22 BUN (6 - 22 mg/dl) 10 Creatinine (0.43 - 1.13 mg/dL) 1.10 Est GFR (CKD-EPI 2020) (>/=90) 84 L Glucose (70 - 110 mg/dL) 104 Hemoglobin A1c (<5.7 %) 6.0 H Estim Average Glucose (<125 mg/dl) 126 H Calcium (8.4 - 10.2 mg/dL) 9.3 Phosphorus (2.3 - 5.0 mg/dL) <1.0 CL Magnesium (1.6 - 2.4 mg/dL) 2.0 Total Bilirubin (0.1 - 1.2 mg/dL) 0.8 Conjugated Bilirubin (0.0 - 0.3 mg/dL) 0 Unconjugated Bilirubin (0.0 - 1.1 mg/dL) 0.4 AST (10 - 40 Units/L) 26 ALT (10 - 60 Units/L) 30 Total Alk Phosphatase (20 - 130 Units/L) 112 Troponin I (0.000 - 0.034 ng/mL) <0.012 Total Protein (5.5 - 8.7 g/dL) 7.7 Albumin (3.2 - 5.0 g/dL) 4.8 Triglycerides (0 - 150 mg/dL) 393 H Cholesterol (0 - 200 mg/dL) 260 H LDL Cholesterol (0 - 130 mg/dL) 148 H Non-HDL (LDL + VLDL) (() mg/dl) 227 HDL Cholesterol (0 - 60 mg/dL) 33 Heart Disease Risk Ratio (1.5 - 5.6) 7.9 H TSH (0.465 - 4.680 mcInU/mL) 1.050 Coagulation PT (10.0 - 12.8 Seconds) 11.9 INR (0.8 - 1.1) 1.1 APTT (25 - 38 SECONDS) 33 Hematology WBC (4.0 - 10.5 10 3/u) 10.0 RBC (4.63 - 6.08 10 6/uL) 5.01 Hgb (13.7 - 17.5 G/DL) 11.3 L Hct (40.1 - 51.0 %) 36.6 L MCV (79.0 - 92.2 fl) 73.1 L MCH (25.7 - 32.2 pg) 22.6 L MCHC (32.3 - 36.5 g/dl) 30.9 L RDW (11.6 - 14.4 %) 16.5 H Plt Count (150 - 400 10 3/uL) 360 MPV (9.4 - 12.4 fl) 10.1 Nucleated RBC % (auto) (0.0 - 0.2 %) 0.0 Immature Gran % (0.0 - 0.4 %) 0.4 Immature Gran # (0.00 - 0.03 10 3/uL) 0.04 H Absolute Neutrophils (1.78 - 5.38 10 3/uL) 8.03 H Segmented Neutrophils (34.0 - 67.9 %) 80.6 H Lymphocytes (21.8 - 53.1 %) 12.7 L Lymphocytes # (1.32 - 3.57 10 3/uL) 1.26 L Monocytes (5.3 - 12.2 %) 5.4 Monocytes # (0.30 - 0.82 10 3/uL) 0.54 Eosinophils (0.8 - 7.0 %) 0.5 L Eosinophils # (0.04 - 0.54 10 3/uL) 0.05 Basophils (0.2 - 1.2 %) 0.4 Basophils # (0.01 - 0.08 10 3/uL) 0.04 Nucleated RBCs # (0.00 - 0.18 10 3/uL) 0.00 Toxicology Plasma/Serum Alcohol (0 - 10 mg/dL) <10Recent Impressions:CAT SCAN - CT STROKE BRAIN WO CONTRAST 05/25 949 Report Impression - Status: SIGNED Entered: 05/25/2024 1011IMPRESSION:No acute hemorrhage, mass effect, or midline shift. If clinicalconcern persists, MRI is recommended.Preliminary findings reported via iDi[employer] application on at09:52 a.m.Workstation ID: [id number], Mikael Santacruz M.D., staff radiologist, have reviewed theimages for this examination and the diagnostic interpretationprovided by Tatiana Lopez M.D., resident medical officer, and I am incomplete agreement with the findings.Impression By: MONICO Santacruz M.D.CAT SCAN - CT CERVICAL SPINE WO CONT 05/25 949 Report Impression - Status: SIGNED Entered: 05/25/2024 1038IMPRESSION:No acute fracture of the cervical spine. Degenerative changes asabove. If symptoms persist, further evaluation with MRI spine can beobtained, as clinically indicated.Workstation ID: [id number] M.D., staff radiologist, have reviewed theimages for this examination and the diagnostic interpretationprovided by Tatiana Lopez M.D., resident medical officer, and I am incomplete agreement with the findings.Impression By: MONICO Santacruz M.D.RADIOLOGY - CHEST STROKE AP PORT 05/25 1000 Report Impression - Status: SIGNED Entered: 05/25/2024 1040IMPRESSION:No radiographic evidence of acute cardiopulmonary abnormality.Workstation ID: [id number] M.D., staff radiologist, have reviewed theimages for this examination and the diagnostic interpretationprovided by Tatiana Lopez M.D., resident medical officer, and I am incomplete agreement with the findings.Impression By: MONICO Santacruz M.D.CAT SCAN - CT BRAIN PERFUSION 05/25 1000 Report Impression - Status: SIGNED Entered: 05/25/2024 1032IMPRESSION:CTA head: No aneurysm, occlusion or dissectionCTA neck: No significant stenosis, occlusion or dissection.CT perfusion: No suspicious perfusion defect.CTA imaging was analyzed by [employer] LVO ContaCT to enablecomputer-assisted triage and notification to rapidly detect a LVO andshorten time to notification.Workstation ID: [id number] By: DANIKA Miller M.D.CAT SCAN - CTA STROKE NECK W-WO CONT 05/25 1003 Report Impression - Status: SIGNED Entered: 05/25/2024 1032IMPRESSION:CTA head: No aneurysm, occlusion or dissectionCTA neck: No significant stenosis, occlusion or dissection.CT perfusion: No suspicious perfusion defect.CTA imaging was analyzed by [employer] LVO ContaCT to enablecomputer-assisted triage and notification to rapidly detect a LVO andshorten time to notification.Workstation ID: [id number] By: DANIKA Miller M.D.CAT SCAN - CTA STROKE HEAD W-WO CONT 05/25 1003 Report Impression - Status: SIGNED Entered: 05/25/2024 1032IMPRESSION:CTA head: No aneurysm, occlusion or dissectionCTA neck: No significant stenosis, occlusion or dissection.CT perfusion: No suspicious perfusion defect.CTA imaging was analyzed by [employer] LVO ContaCT to enablecomputer-assisted triage and notification to rapidly detect a LVO andshorten time to notification.Workstation ID: [id number] By: DANIKA Miller M.D. Lab Imaging StatementLaboratory radiographic studies reviewed and considered in the medicaldecision-making.MDM-Stroke/CVAFree Text MDM NotesAdditional TextConcern for conditions associated with high morbidity and mortality. DDxincludes but is not limited to cervical spine pathology, TIA, CVA, electrolyteabnormality, panic attack, vascular abnormality. Labs and imaging ordered torule out conditions associated with high morbidity and mortality.Stroke alert called on initial evaluation. Initial NIH = 1. Not a TNK candidatedue to initial sx onset of dysphonia yesterday evening.Prelim read per Maria Dolores no LVO, no ICH, no acute abnormality. Not TNK as above.Independently reviewed and interpreted labs revealing for mild microcytic sprnve26.3, unkwn baseline. Significantly low phos < 1.0, repleted.Independently reviewed and interpreted imaging revealing for no acuteabnormalities. Agree with Radiology interpretation.Discussed case with admitting hospitalist, neurology.Patient's symptoms unchanged throughout ED course.Symptoms possibly due to severe hypophosphatemia.Diagnosis is severe hypophosphatemia, numbness, dysphonia.Disposition is admission with neurology consult.Re-Evaluation/Progress #1Text/Dict NoteUpdate on full details of results and plan for admission, understands andagrees.Time of Re-Eval 1046Re-Eval Status UnchangedED CourseMedication(s) OrderedMedication(s) Ordered:Central Nervous System Agents Sig/Fadi Start time Last Medication Dose Route Stop Time Status Admin Acetaminophen 650 MG Q6H PRN PRN 05/25 1102 AC PO 06/24 1101Diagnostic Agents Sig/Fadi Start time Last Medication Dose Route Stop Time Status Admin Iopamidol 100 ML .STK-MED ONE 05/25 1015 DC 05/25 IV 05/25 1016 1015Electrolytic, Caloric, And Codie Sig/Fadi Start time Last Medication Dose Route Stop Time Status Admin Sodium Biphosphate 15 MM X1ED ONE 05/25 1100 AC 05/25 Sodium Chloride 250 ML IV 05/25 1459 1113 Sodium Chloride 1,000 ML X1ED ONE 05/25 1023 AC 05/25 IV 05/25 1422 1040Gastrointestinal Drugs Sig/Fadi Start time Last Medication Dose Route Stop Time Status Admin Ondansetron HCl 4 MG Q6H PRN PRN 05/25 1102 AC IV 06/24 1101Patient Discharge DepartureVital Signs/ConditionVital SignsFirst Documented: Result Date Time Pulse Ox 100 05/25 0947 B/P 151/85 05/25 0947 B/P Mean 111 05/25 0947 Pulse 80 05/25 0947 Resp 05/25 1020 O2 Delivery Room air 05/25 1029 Temp 97.7 05/25 1029Last Documented: Result Date Time Pulse Ox 99 05/25 1029 B/P 133/83 05/25 1029 O2 Delivery Room air 05/25 1029 Temp 97.7 05/25 1029 Pulse 71 05/25 1029 Resp 14 05/25 1029 B/P Mean 103 05/25 1020All vital signs available at the time of this entry have been reviewed.Condition Stable, ImprovedDEIRDREASHLEYCHON N 05/25/24 1003:HPI-Stroke/CVAFree Text HPI NotesFree Text HPI NotesThe patient is a 44 yo M who presents to the ED via ground EMS with left-sidednumbness this AM at around 0930am. 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 Patient reportsnumbness of left-sided face, arm, and leg. Denies weakness. Only other symptomis intermittent/vairable dysphonia that onset yesterday evening. LKW yesterdayevening prior to onset of dysphonia, numbness onset at 0930 this AM.Stroke alert called at 0943 upon initial evaluation.GeneralConfirmed Patient YesPatient Type New patientPt in Research Study? NOAssumed Care at Time 0942 Date 05/25/24PCPVisiting from [place] no localTransferred From To ER via EMSPresentationChief Comp: Left Side Numbness, face, Numbness, arm, Numbness, leg)( Last Known Well )( Time 1999 Date 05/24/24Reason for ED Visit (v.PCP/UC)Left- sided numbnessHx Obtained From PatientOnset Occurred Yesterday unsure of exact time likely around 8:00 p.m. well over4-1/2 hours ago)( Progression since Onset Waxes and wanesLocation Left-sided numbnessRisk-Stroke/CVARisk Stratification)( Initial NIH Stroke Scale )( Initial NIH Stroke Scale Response Value NIHSS Applicable? Yes 0 Level of Consciousness Alert and responsive (0) 0 Ask Month Age Both questions right (0) 0 Blink Eyes/Squeeze Hands Performs both tasks (0) 0 Right Arm Motor Drift (10s) No drift 10 sec (0) 0 Left Arm Motor Drift (10s) No drift 10 sec (0) 0 Right Leg Motor Drift (5s) No drift 5 sec (0) 0 Left Leg Motor Drift (5s) No drift 5 sec (0) 0 Limb Ataxia FNF/Heel-Olivier No ataxia (0) 0 Sensation (Arms/Legs/Face) Pinprick less sharp (1) 1 Language Aphasia No aphasia, normal (0) 0 Dysarthria No dysarthria (0) 0 Extinction/Inattention No extinct/inattent (0) 0 Total 1NIH Stroke Score Timing Time 09 Date 05/25/24Stroke Risk factors reviewed, Hypertension, SmokingGlasgow Coma Score: Copyright [facility] Copyright [facility] Sanket [place] Eye opening: (4) Spontaneous Verbal response: (5) Oriented Best motor response: (6) Obeys commands GCS Score: 15Intracranial Bleed Risk factors reviewedSubarachnoid Hemorrhage Hypertension)( Modified Tanya Scale 1- No signif disabilityReview of SystemsFocused Review of SystemsConstitutionalDenies: Chills, Fever, Lethargy.Ears/Nose/ThroatDenies: Ear drainage R, Ear ringing R, Ear ringing bilat, Earache R, Hearingloss bilat, Nose bleeding.CardiovascularDenies: Chest pain, Dyspnea on exertion, Edema, Orthopnea, Syncope.NeurologicReports: Numbness (Left-sided face arm leg numb). Denies: Confusion, Dizziness,Focal weakness, Generalized weakness, Headache, Seizure, Shaking, Slurred speech, Syncope.PsychiatricReports: Anxiety. Denies: Suicidal ideation.PMH-Stroke/CVAAllergiesCoded Allergies:No Known Allergies (05/25/24)Calculated suicide risk level: not suicidalReview of Nursing Notes Rev avail, and agree ( see my note for clarification),Triage notes reviewedPast Medical History:Reports: Hypertension.Additional Surgical HistoryDenies significantFamily HistoryReports: CAD < 40 yrs old (Father ND in his 30s), Heart disease (father ND inhis 30's), Hypertension ( mother father htn). Denies: Cancer, Diabetes.Alcohol Use Denies EtOH useSmoking status for patients 13 years old or older: Current some day smokerOther Social History Visiting locally ( visiting from [place]), Good socialsupport (lives w/ kids)OccupationTruck driverAmbulatory Stat Prior to Event IndependentPhysical ExamVital SignsReview of Vital Signs Reviewed, Vital signs normalFree Text PE NotesFree Text PE NotesFocused PE vital signs reviewed mild hypertension mildly elevated heart rateGeneral/Const General/Const Awake, Alert, No acute distress, Well appearing, Cooperative,Not toxic appearing somewhat anxiousMS Head Head Atraumatic, NormocephalicEyes Eyes Atraumatic, PERRL, EOMI, No nystagmusEars/Nose/Throat Ears/Nose/Throat Atraumatic, Airway patent, Mucous membranes moistMS Neck Neck Atraumatic, Supple, No meningismus. No midline cervical thoracic orlumbar tenderness appreciated no paraspinal tenderness.Resp/Chest Respiratory/Chest Atraumatic, Breath sounds NL, Breath sounds = bilat, Norespiratory distressCardiovascular Cardiovascular Heart rate NL, Regular rhythm, Heart sounds NL, No murmurs,Pulses = bilaterallyAbdomen/GI Abdomen/GI Atraumatic, Soft, Non-tenderMS Upper Extrem Upper Extremity/MS Atraumatic, Vascular intactMS Lower Extrem Lower Ext/Pelvis/MS Atraumatic, Vascular intactSkin Skin Warm, Dry, IntactNeurologic Neurologic Oriented X3, Speech NL, No motor deficits, CN II - XII intact,Cerebellar NL, Memory NL, Gait NL, Diminished sensation left-sided face, upperand lower extremity. Diffuse mild tremuolousness. Speech normal NIHSS 1 forleft-sided numbnessPsychiatric Psychiatric Anxious moodInterpretation DiagnosticsLab Results InterpretationConsiderations Independ review [id number] Lab Imaging StatementLaboratory radiographic studies reviewed and considered in the medicaldecision-making.Point of Care TestingPulse Oximetry Pulse Ox % 99 On: Room air Interpretation Interpreted by me, Pulse oximetry normal Time 1029ECG #1 InterpretationText/Dict NoteNormal sinus rhythm 73 per minute sinus rhythm noted no acute ST elevation noSTEMI ND normal axis normal intervals.ECG Documented in MUSE YesDate 05/25/24Time 1019Interpreted by ED physicianNL ECG Interpretation Normal rate, Normal sinus rhythm, No acute ischemicchanges, No STEMI, Normal axis, Normal intervalsRate 734MDM-Stroke/CVAFree Text MDM NotesAdditional TextThe patient is a 44 yo M who presents to the ED via ground EMS with left-sidednumbness this AM at around 0930am. 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 Patient reportsnumbness of left-sided face, arm, and leg. Denies weakness. Only other symptomis intermittent/vairable dysphonia that onset yesterday evening. LKW yesterdayevening prior to onset of dysphonia, numbness onset at 0930 this AM.Stroke alert called at 0943 upon initial evaluation.See my disorder physical examined physical exam section. NIHSS is 1 for left-sided numbness.Concern for conditions associated with high morbidity and mortality. DDxincludes but is not limited to cervical spine pathology, TIA, CVA, electrolyteabnormality, panic attack, vascular abnormality. Labs and imaging ordered torule out conditions associated with high morbidity and mortality.Stroke alert called on initial evaluation. Initial NIH = 1. Not a TNK candidatedue to initial sx onset of dysphonia yesterday evening.Prelim read per [employer] no LVO, no ICH, no acute abnormality. Not TNK as above.Independently reviewed and interpreted labs revealing for mild microcytic yvuasg66.3, unkwn baseline. Significantly low phos < 1.0, repleted. Repletion IV forlow phosphorus ordered continuous cardiac monitoringIndependently reviewed and interpreted imaging revealing for no acuteabnormalities. CT angiogram head and neck imaging CT perfusion imaging CTcervical spine imaging no acute findings DJD noted. No LV 0. Agree withRadiology interpretation.Discussed case with admitting hospitalist HPI exam findings need for admission,neurology and neuro IR consult discussion with the both appreciated not athrombolytic candidate.Patient's symptoms unchanged throughout ED course.Symptoms possibly due to severe hypophosphatemia. Or TIA or anxiety or othercausesDiagnosis is left-sided numbness, neurologic deficit with severehypophosphatemia, dysphonia.Disposition is admission to hospitalist team stroke floor with neurologyconsult. IV phosphorus replacement ordered in ER. Further medical neurologicevaluation MRI imaging brain need to rule TIA CVARe- Evaluation/Progress #1Text/Dict NoteUpdate on full details of results and plan for admission, understands andagrees.Time of Re-Eval 1046Re-Eval Status UnchangedRe-Eval Neurologic Exam Still left-sided no medicine NIHSS 15 speech normal nomotor sensory deficits.NIH Stroke Scale NIH Stroke Scale Response Value NIHSS Applicable? Yes 0 Level of Consciousness Alert and responsive (0) 0 Ask Month Age Both questions right (0) 0 Blink Eyes/Squeeze Hands Performs both tasks (0) 0 Horizontal EOM NL side/side eye mvmt (0) 0 Visual Andres No visual loss (0) 0 Facial Palsy Normal symmetry (0) 0 Right Arm Motor Drift (10s) No drift 10 sec (0) 0 Left Arm Motor Drift (10s) No drift 10 sec (0) 0 Right Leg Motor Drift (5s) No drift 5 sec (0) 0 Left Leg Motor Drift (5s) No drift 5 sec (0) 0 Limb Ataxia FNF/Heel-Olivier No ataxia (0) 0 Sensation (Arms/Legs/Face) Pinprick less sharp (1) 1 Language Aphasia No aphasia, normal (0) 0 Dysarthria No dysarthria (0) 0 Extinction/Inattention No extinct/inattent (0) 0 Total 1NIH Stroke Score Timing Time 1046 Date 05/25/24Plan Post Re-Eval Plan admit (admit for mri, IV phosh ) Tissue Perfusion ReassessmentPatient tissue perfusion reassessment completed.Stroke Thrombolytic TherapyIV Thrombolytic Rec'd at Outside Hospital? NoAdministered IV Thrombolytic? No, not indicated, No, exclusion criteriaNeurologist Contacted At bedsideExclusion Criteria Prior Stroke/3 months, LKW > 4.5 hrs of UnknownRelative Exclusion Criteria Minor non-disab stroke sx, Minor sensory symptomsnumbness symptoms noted other diagnosis can explained patient's symptomsincluding hypophosphatemiaConsultationConsultation 1 Referral/Consult Name Valentin Marino MD Cutter Tender Called Neurology Cutter Tender Discussed with [employer] financial[employer] consultant, Agrees with eval, Agrees with plan Requested Call Time 943 Requested Call Date 05/25/24 Call Returned Call returned Call Returned Time 943 Call Returned Date 05/25/24 Free Text Consult NotesThis neurology stroke team called for stroke alert and patient had left-sidednumbness with the last 24 hours. 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 Not athrombolytic candidate due date no LV0 not a neurointerventional candidateDifferential DiagnosisDifferential Diagnosis On arrival to ER differential diagnosis includes but isnot limited to increased risk of morbidity mortality neurologic medicaldiagnosis, TIA CVA spinal electrolyte anxiety amongst othersRuled Out Stroke This is not a large vessel occlusion strokeMDM-ComplexityDifferential DiagnosisOn arrival to ER differential diagnosis includes but is not limited to increasedrisk of morbidity mortality neurologic medical diagnosis. Including but notlimited to TIA CVA paresthesias electrolyte abnormalities and othersRuled Out DiagnosesAfter evaluation treatment large vessel occlusion stroke is ruled out, acutecardiac event is ruled out.Severity/Chronicity EvaluationPatient has a neurologic deficit left numbness and an increased risk ofmorbidity mortality risk of deterioration diagnosis, acute presentation.MDM-Independent InterpretationMy ECG InterpretationNormal sinus rhythm 73 per minute sinus rhythm noted no acute ST elevation noSTEMI ND normal axis normal intervals.My Plain Film InterpretationChest x-ray no acute findings.My Other Test InterpretationCBC chemistries reveal white count normal mild anemia hemoglobin 11.3 normalplatelet count normal chemistries except for serum phosphorus very low less than1.CT angiogram head and neck imaging CT perfusion imaging CT cervical spineimaging reveals no acute findings no LV 0. DJD of the cervical spine noted.MDM-DiscussionDiscussed With/WhatDiscussed with the patient HPI patient examined.Left-sided numbness NIHSS 14 symptoms within 4-1/2 hours patient needs strokealert criteria. Stroke alertDiscussed with the patient need for stroke and medical evaluation. Discussedwith neurology stroke team presentation within stroke alert parameters althoughNIHSS 1 for left-sided numbness mild symptoms this neurology stroke team agreeswith the stroke alert ER treatment evaluation.Patient reassessed discussion with the neuro IR neurology after imaging imagingand CT perfusion imaging. Not a thrombolytic candidate due to treat minimalsymptoms improving. Will admit to stroke floor discussed with the patient whoagrees with the treatment plan. Low phosphorus noted need for supplementationDiscussed with the admitting team presentation neurologic deficit left-sidednumbness improving not a thrombolytic candidate they agree with the ER treatmentevaluation neuro neuro IR consultation will admit patient.MDM-Treatment/EvaluationED CourseHistory obtained patient examined treated evaluated reassessed and admitted tostroke floor with neurology neuro IR consult in stable conditionPatient Discharge DepartureVital Signs/ConditionCondition Stable, ImprovedClinical ImpressionClinical ImpressionPrimary Impression: Neurological deficit presentSecondary Impressions: Anemia, Anesthesia of skin, History of cervical spinalsurgery, Hypophosphatemia, Left sided numbness, SmokerTime of Impression 1028Disposition DecisionHospitalize [facility] Suly [facility] MD [facility] Physician Hospitalist Request Time 1028 Request Date 05/25/24 )( Accepts Hospitalization Yes )( Reason for HospitalizationNeurologic deficit left-sided numbness NIHSS S1 stroke alert called. Need forfurther stroke evaluation cardiac medical neurologic evaluation increased riskmorbidity and mortality in deterioration. Need for stroke for admission, IVpotassium replacement for severe hypophosphatemia, further neuro medicalevaluation MRI imaging. Neuro IR and neurology consult appreciated. )( Accepted Time 1038 )( Accepted Date 05/25/24 Call Information will see patient, agrees with eval, agrees with plan, Thishospitalist team agrees with the ER treatment evaluation agrees with neurologyneuro IR consult and will admit patient.Discharge/Care PlanCounseled Regarding Diagnosis, Lab results, Imaging studies, Need for admission,Smoking cessationReferralsProvider Referral: No Primary or Family Physician Admit NoteI have spoken with the patient and/or caregivers. I have explained the patient'scondition, diagnoses and treatment plan based on the information available to meat this time. I have answered the patient's and/or caregiver's questions andaddressed any concerns. The patient and/or caregivers have as good anunderstanding of the patient's diagnosis, condition and treatment plan as can beexpected at this point. The patient has been stabilized within the capability ofthe emergency department. The patient will be transported for further care andmanagement or will be moved to an observation or inpatient service. I havecommunicated with the staff or medical practitioner taking over this patient'scare.Critical CareTime Spent (minutes): 45Services Performed Patient management by me, Time spent at bedside, Reviewingtest results, Reviewing imaging, Discussing patient care, Documentation inrecordSeparately billable procedures excluded from time.Patient was critically ill due to:Neurologic deficit meeting criteria for stroke alert activation. Increased riskmorbidity mortality diagnosis.My treatment and management were:Rapid HPI physical examined. Neurologic deficit NIHSS 1 for left-sided numbnessonset minutes ago within board 1/2 hours. Last normal head dysphonia onset lastnight well over 4-1/2 hours. Protocol initiation. NIHSS 1. Discussion withthe patient discussion with the neurology neuro IR review of imaging multiple re-evaluations reassessments. Patient with left-sided numbness neurologic deficitbeing admitted for hypophosphatemia and further evaluation with a possible TIACVA very mild symptoms not a need for stroke. Discussion with the neuro neuroIR through viz ai and hospitalist team in-patient. Need for frequent neurochecks MRI imaging admission increased risk morbidity mortality diagnosiscritical care patient CC Note 1Total critical care time [45] minutes. Total critical care time documented doesnot include time spent on separately billed procedures or the services ofresidents, students, nurses or physician assistants. I personally saw andexamined the patient. I have reviewed all diagnostic interpretations andtreatment plans as written. I was present for the jacob portions of any proceduresperformed and the inclusive time noted in any critical care statement. Criticalcare time includes patient management by me, time spent at the patients bedside,time to review lab and imaging results, discussing patient care, documentationin the medical record, and time spent with the family or caregiver.Quality MeasuresSmoking Cessation Screened, tobacco user, Tobacco cess interventionTobacco Screening/Cessation 18 years or older, Tobacco user Smoking Cessation CounselingThe patient was questioned regarding their smoking habits, and I have determined, as the patient's treating physician, that there is a medical necessity inregards to the patient's medical condition to provide smoking cessation programeducation. The patient was advised to stop smoking and counseled for a period ofgreater than 3 minutes. The patient was instructed to follow up with a primarycare physician for smoking cessation.As this patient is being admitted to hospitalist further smoking cessationduring admission is appropriate.Supervising Physician Note Resident Saw PtThis patient was seen by a resident. I have personally seen the patient,performed the critical or jacob portions of the service, and participated in themanagement of the patient. I have reviewed and agree with the resident's note,and I have reviewed all labs, ECGs, and imaging studies or reports. I agree withthis resident's findings, exam and plan in principle see my note in the medicalrecord for clarifications please. at 1047 at 0454RPT #: [id number] OF REPORT Problems Smoker Onset:04-Jun-2024 Deirdre Ruth MD Anemia Onset:04-Jun-2024 Deirdre Ruth MD Anesthesia of skin Onset:04-Jun-2024 Deirdre Ruth MD Numbness Onset:04-Jun-2024 Deirdre Ruth MD Paresthesia Onset:26-May-2024 Darrell Rosario CUSTOMER SUCCESS DIRECTOR Neurological symptom Onset:25-May-2024 Darrell Rosario APRN Hypophosphatemia Onset:25-May-2024 Deirdre Ruth MD History of surgical procedur e on cervical spine Onset:25-May-2024 Deirdre Ruth MD Hypophosphatemia Onset:25-May-2024 [id number] Neurological deficit Onset:25-May-2024 Deirdre Ruth MD Mental Status Cognitive function finding 25-May-2024 Allergies and Adverse Reactions No Known Allergies(Allergy) Onset: 25-May-2024 Medications 24 HR nicotine 0.292 MG/HR Transdermal System;7 MILLIGRAM DAILY Quantity:1 Jamila Xie MD Start:15-Zte-7282Ske:2024 Status:Discontinued Comments:[id number] temazepam 15 MG Oral Capsule;15 MILLIGRAM BEDTIME PRN Quantity:1 Grady Lomax MD Start:69-Uxc-5702Xcd:2024 Status:Discontinued Comments:[id number] Administration Instructions:WEAR ONE PAIR OF CHEMO GLOVES (ASTM D6978)REPRODUCTIVE EFFECT- TABLE 3 CAUTION: RISK FOR FALLS SedativesSE: Sedation, Dizziness atorvastatin 40 MG Oral Tablet;40 MILLIGRAM BEDTIME Quantity:1 Warner Tubbs MD Start:82-Lho-3479Wnl:2024 Status:Discontinued Comments:[id number] Administration Instructions:AntilipidemicsSE: Muscle Pain (contact physician promptly),Rash sodium chloride 9 MG/ML Injectable Solution;[id number] r Administration Instructions:Concentrati on: 0.06 mmol/mLFROM PHARMACY - GIVE OVER 4 HRS Warner Tubbs MD Start:42-Fqx-6293Dhr:2024 Comments:[id number] Administration Instructions:Concentration: 0.06 mmol/mLFROM PHARMACY - GIVE OVER 4 HRS acetaminophen 325 MG Oral Tablet;650 MILLIGRAM Q6H PRN Quantity:2 Warner Tubbs MD Start:58-Pxl-9613Zti:2024 Status:Discontinued Comments:[id number] Administration Instructions:For mild pain (score 1 - 3) DO NOT EXCEED 3 GM PER 24 HRS [id number] 2 ML ondansetron 2 MG/ML Injection;4 MILLIGRAM Q6H PRN Quantity:1 Warner Tubbs MD Start:47-Avh-2966Pid:2024 Status:Discontinued Comments:[id number] Administration Instructions:AntinauseantsHeadache, GvktouluKDFBJSRU56 sodium chloride 9 MG/ML Injectable Solution;[id number] Deirdre Ruth MD Start:99-Tgu-0707Dae:25-May-2024 Comments:[id number] sodium chloride 9 MG/ML Injectable Solution;[id number] Deirdre Ruth MD Start:60-Tal-3733Pul:25-May-2024 Comments:[id number] iopamidol;100 MILLILITERS .STK-MED Quantity:1 Deirdre Ruth MD Start:59-Qmk-3286Rsx:25-May-2024 No Home Medications_NK-AOM Start:08-Sep-2011 Xafnpss-561_CPKJ973U4-WO M;750 MG ORAL Every 6 Hours as Needed Start:17-Aug-2011 Status:Aborted Comments:750 MG PO Q6H PRN As Needed for Muscle Spasms Procedures VIDEO SWALLOWResult:[facility] Name: NOLBERTO GARY [address] Phys: [place] [address] : 1980 Age: 44 Sex: M Acct: [id number] Loc: V.642-N A PHONE #: [phone] Exam Date: 05/26/2024 Status: ADM IN FAX #: [phone] Unit: [id number] PACS: [id number] Exam Completed: 05/26/24 @ 1101 Total Fluoro Time (min): 2.4 EXAMS: [id number] VIDEO SWALLOW HISTORY: Dysphagia MODIFIED BARIUM SWALLOW Total fluoroscopy time: 142.1 seconds Total number images submitted for interpretation: 4585 Cumulative dose: 12.53mGy FINDINGS/IMPRESSION: Modified barium swallow was performed by the Speech Pathologist. The radiologists interpreting this examination were not present during the performance of the examination. Please refer to the speech pathology report for complete evaluation. Workstation ID: [id number] Swapna, Mary Jo M.D., staff radiologist, have reviewed the images for this examination and the diagnostic interpretation provided by Anoop Cano D.O., resident medical officer, and I am in complete agreement with the findings. at 1512 Reported and signed by: Mary Jo M.D. CC: No Primary or Family Physician; Suly Hylton MD Technologist: BORIS Melvin(R) ARRT Transcribed Date/Time: 05/26/2024 (7068)Pest Control Worker Helper: UMR:DENNY Reynoso Print D/T: S: 05/26/2024 (1706) PAGE 1 Signed Report Date:26-May-2024 Status:Completed MRI BRAIN WO CONTRASTResult:[facility] Name: NOLBERTO GARY [address] Posadas Phys: [place] [address] : 1980 Age: 44 Sex: M Acct: [id number] Loc: V.642-N A PHONE #: [phone] Exam Date: 05/26/2024 Status: ADM IN FAX #: [phone] Unit: [id number] PACS: [id number] Exam Completed: 05/26/24 @ 1019 EXAMS: [id number] MRI BRAIN WO CONTRAST HISTORY: Left sided numbness TECHNIQUE: Multiplanar, multisequence MR images of the brain were obtained without intravenous contrast. Comparison: CT of the brain from 05/25/2024 Findings: There is no evidence of acute infarct or restricted diffusion. There is no evidence of intracranial mass, mass effect or midline shift. Small focus of T2/FLAIR signal hyperintensity within the left parietal deep white matter (series 3 image 22), nonspecific. Otherwise normal white matter signal intensity. The patel white matter differentiation is preserved. There are no abnormal collections. Gradient images reveal no suspicious foci of susceptibility artifact. The craniocervical junction and sellar content appear unremarkable. The subarachnoid spaces are symmetric. The major intracranial arterial flow voids are grossly patent. Visualized mastoid air cells, paranasal sinuses, and globes/orbits appear unremarkable. Impression: 1. No acute ischemia, edema, mass effect, midline shift or intracranial hemorrhage. 2. Left parietal deep white matter the FLAIR signal hyperintensity as above potentially representing small vessel ischemic changes; though relatively unexpected for patients age. Please correlate with risk factors for precocious microangiopathy such as chronic hypertension, diabetes, collagen vascular disease, vasculitis and/or smoking. Other causes of demyelination/axonal injury could be considered including sequela of previous trauma, infection, or inflammation. No findings to suggest multiple sclerosis. Workstation ID: [id number] at 1043 Reported and signed by: Maurilio Bucio M.D. PAGE 1 Signed Report (CONTINUED) [facility] Name: NOLBERTO GARY [address] Phys: [place] [address] : 1980 Age: 44 Sex: M Acct: [id number] Loc: V.642-N A PHONE #: [phone] Exam Date: 05/26/2024 Status: ADM IN FAX #: [phone] Unit: [id number] PACS: [id number] Exam Completed: 05/26/24 @ 1019 EXAMS: [id number] MRI BRAIN WO CONTRAST <Continued>CC: No Primary or Family Physician; Poli Jackson MD; Suly Hylton MD Technologist: TOLU MCKNIGHT RT(R)(CT)(MR)(AR Transcribed Date/Time: 05/26/2024 (1043)Pest Control Worker Helper: JORGER:DENNY Cueto D/T: S: 05/26/2024 (1044) PAGE 2 Signed Report Date:26-May-2024 Status:Completed - CHEST STROKE AP PORTResult:[facility] Name: NOLBERTO GARY Julieta Posadas Phys: [place] [address] : 1980 Age: 44 Sex: M Acct: [id number] Loc: V.ER PHONE #: [phone] Exam Date: 05/25/2024 Status: REG ER FAX #: Unit: [id number] PACS: [id number] Exam Completed: 05/25/24 @ 1005 EXAMS: [id number] CHEST STROKE AP PORT HISTORY: Stroke alert, left-sided numbness TECHNIQUE: single frontal view of the chest performed Comparison: None FINDINGS: The cardiomediastinal silhouette is stable and within normal limits for size. No confluent focal consolidation. No pleural effusion. No pneumothorax evident. No acute bony abnormality visualized. IMPRESSION: No radiographic evidence of acute cardiopulmonary abnormality. Workstation ID: [id number] I, Mikael Santacruz M.D., staff radiologist, have reviewed the images for this examination and the diagnostic interpretation provided by Tatiana Lopez M.D., resident medical officer, and I am in complete agreement with the findings. at 1037 RESIDENT: TATIANA LOPEZ MD Reported and signed by: Mikael Santacruz M.D. CC: Poli Jackson MD Technologist: RT LUIS(Deni)ARRT Transcribed Date/Time: 05/25/2024 (1037)Pest Control Worker Helper: UMR:DENNY Reynoso Print D/T: S: 05/25/2024 (3118) PAGE 1 Signed Report Date:25-May-2024 Status:Completed CT CERVICAL SPINE WO CONTResult:[facility] Name: [facility] [address] [place] [address] Phys: [place] [address] : 1980 Age: 44 Sex: M Acct: [id number] Loc: . PHONE #: [phone] Exam Date: 05/25/2024 Status: [facility] ER FAX #: [phone] Unit: [id number] PACS: [id number] Exam Completed: 05/25/24 @ 0955 EXAMS: [id number] CT CERVICAL SPINE WO CONT HISTORY: Left-sided numbness EXAMINATION: CT CERVICAL SPINE WITHOUT CONTRAST: COMPARISON: None PROCEDURE COMMENTS: CT of the cervical spine was performed without IV contrast FINDINGS: Alignment: Straightening of the cervical spine with mild kyphotic curvature of the upper cervical spine. Vertebrae: Well-seated surgical hardware status post ACDF at C6-7 with intervertebral disc spacer. C4-5 with metal artifact limiting evaluation of the spinal cord at this level. The vertebral body heights are maintained. The vertebral bodies and posterior elements are intact without acute fracture. Skull Base and Atlanto-Axial Joint: No evidence of acute fracture. Atlanto-occipital and atlanto-axial articulation is unremarkable. Atlanto-dental distance is within normal limits. Degenerative changes: Moderate right neural foraminal narrowing at C3-4 and C5-6. Mild to moderate canal stenosis and C4-5 with evaluation at this level limited due to metal artifact. Extra-vertebral soft tissues: No prevertebral edema. Additional comment: None. IMPRESSION: No acute fracture of the cervical spine. Degenerative changes as above. If symptoms persist, further evaluation with MRI spine can be obtained, as clinically indicated. Workstation ID: [id number] PAGE 1 Signed Report (CONTINUED) [facility] Name: [facility] [id number] [place] [address] Phys: [place] [address] : 1980 Age: 44 Sex: M Acct: [id number] Loc: [facility] PHONE #: [phone] Exam Date: 05/25/2024 Status: [facility] FAX #: [phone] Unit: [id number] PACS: [id number] Exam Completed: 05/25/24 @ 0955 EXAMS: [id number] CT CERVICAL SPINE WO CONT <Continued> I, Mikael Santacruz M.D., staff radiologist, have reviewed the images for this examination and the diagnostic interpretation provided by Tatiana Lopez M.D., resident medical officer, and I am in complete agreement with the findings. at 1035 RESIDENT: TATIANA LOPEZ MD Reported and signed by: Mikael Santacruz M.D. CC: Poli Jackson MD Technologist: JAH LAINEZ RT(CT)(ARRT); ... Transcribed Date/Time: 05/25/2024 (1035)Pest Control Worker Helper: UMR:DENNY Reynoso Print D/T: S: 05/25/2024 (1038) PAGE 2 Signed Report Date:25-May-2024 Status:Completed - CT STROKE ANGIO HEAD W-WO CONTResult:[facility] Name: [facility] [id number] [place] [address] Phys: [place] [address] : 1980 Age: 44 Sex: M Acct: [id number] Loc: Ibotta.ER PHONE #: [phone] Exam Date: 05/25/2024 Status: REG ER FAX #: [phone] Unit: [id number] PACS: [id number] Exam Completed: 05/25/24 @ 1006 EXAMS: [id number] CTA STROKE HEAD W-WO CONT, [id number] CTA STROKE NECK W-WO CONT, [id number] CT BRAIN PERFUSION HISTORY: Stroke alert. Change in mental status. Left-sided numbness TECHNIQUE: Multidetector CT angiography of the brain and neck was performed following intravenous administration of 100 mL ow-osmolar contrast material. 2D and 3D angiographic reconstruction of the images was performed and reviewed in an independent workstation. Radiation dose optimization protocol utilized. NASCET criteria utilized. [employer] LVO Technology used to assist in diagnosis. All CT scans are performed using dose optimization techniques as appropriate to a perform exam including the following: - Automated exposure control - Adjustment of the mA and/or Kv according to patient size (these includes techniques or standardized protocol for dilated exams where there was is matched to indication/reason for exam. - Use of the iterative reconstruction technique <No Selection> DLP:[address] performed same day. FINDINGS: Evaluation of the anterior circulation demonstrates patent bilateral intracranial internal carotid arteries and middle cerebral arteries. The anterior cerebral arteries are normal. Evaluation of the posterior circulation demonstrates patent bilateral intracranial vertebral arteries and basilar artery. The posterior cerebral arteries are patent. FINDINGS: There is normal 3-vessel branching of the great vessels from the aortic arch. PAGE 1 Signed Report (CONTINUED) [facility] Name: NOLBERTO GARY [address] Phys: [place] [address] : 1980 Age: 44 Sex: M Acct: [id number] Loc: Ibotta.ER PHONE #: [phone] Exam Date: 05/25/2024 Status: REG ER FAX #: [phone] Unit: [id number] PACS: [id number] Exam Completed: 05/25/24 @ 1006 EXAMS: [id number] CTA STROKE HEAD W-WO CONT, [id number] CTA STROKE NECK W-WO CONT, [id number] CT BRAIN PERFUSION <Continued> RIGHT COMMON, INTERNAL, AND EXTERNAL CAROTID ARTERIES: . No significant stenosis LEFT COMMON, INTERNAL, AND EXTERNAL CAROTID ARTERIES: No significant stenosis VERTEBRAL ARTERIES: Patent ADDITIONAL FINDINGS: Postsurgical changes of the spine. CT perfusion: No suspicious perfusion defect. IMPRESSION: CTA head: No aneurysm, occlusion or dissection CTA neck: No significant stenosis, occlusion or dissection. CT perfusion: No suspicious perfusion defect. CTA imaging was analyzed by [facility] LVO ContaCT to enable computer-assisted triage and notification to rapidly detect a LVO and shorten time to notification. Workstation ID: [id number] at 1028 Reported and signed by: Marcio Miller M.D. CC: Poli Jackson MD Technologist: JAH LAINEZ RT(CT)(ARRT); ... Transcribed Date/Time: 05/25/2024 (1999)Pest Control Worker Helper: UMR:DENNY Reynoso Print D/T: S: 05/25/2024 (1403) PAGE 2 Signed Report Date:25-May-2024 Status:Completed - CT STROKE ANGIO NECK W-WO CONTResult:[facility] Name: NOLBERTO GARY [address] Phys: [place] [address] : 1980 Age: 44 Sex: M Acct: [id number] Loc: [facility] PHONE #: [phone] Exam Date: 05/25/2024 Status: [facility] ER FAX #: [phone] Unit: [id number] PACS: [id number] Exam Completed: 05/25/24 @ 1006 EXAMS: [id number] CTA STROKE HEAD W-WO CONT, [id number] CTA STROKE NECK W-WO CONT, [id number] CT BRAIN PERFUSION HISTORY: Stroke alert. Change in mental status. Left-sided numbness TECHNIQUE: Multidetector CT angiography of the brain and neck was performed following intravenous administration of 100 mL ow-osmolar contrast material. 2D and 3D angiographic reconstruction of the images was performed and reviewed in an independent workstation. Radiation dose optimization protocol utilized. NASCET criteria utilized. [facility] LVO Technology used to assist in diagnosis. All CT scans are performed using dose optimization techniques as appropriate to a perform exam including the following: - Automated exposure control - Adjustment of the mA and/or Kv according to patient size (these includes techniques or standardized protocol for dilated exams where there was is matched to indication/reason for exam. - Use of the iterative reconstruction technique <No Selection> DLP:[address] performed same day. FINDINGS: Evaluation of the anterior circulation demonstrates patent bilateral intracranial internal carotid arteries and middle cerebral arteries. The anterior cerebral arteries are normal. Evaluation of the posterior circulation demonstrates patent bilateral intracranial vertebral arteries and basilar artery. The posterior cerebral arteries are patent. FINDINGS: There is normal 3-vessel branching of the great vessels from the aortic arch. PAGE 1 Signed Report (CONTINUED) [facility] Name: NOLBERTO GARY Julieta Bushulevard Phys: [place] [address] : 1980 Age: 44 Sex: M Acct: [id number] Loc: .ER PHONE #: [phone] Exam Date: 05/25/2024 Status: REG ER FAX #: [phone] Unit: [id number] PACS: [id number] Exam Completed: 05/25/24 @ 1006 EXAMS: [id number] CTA STROKE HEAD W-WO CONT, [id number] CTA STROKE NECK W-WO CONT, [id number] CT BRAIN PERFUSION <Continued> RIGHT COMMON, INTERNAL, AND EXTERNAL CAROTID ARTERIES: . No significant stenosis LEFT COMMON, INTERNAL, AND EXTERNAL CAROTID ARTERIES: No significant stenosis VERTEBRAL ARTERIES: Patent ADDITIONAL FINDINGS: Postsurgical changes of the spine. CT perfusion: No suspicious perfusion defect. IMPRESSION: CTA head: No aneurysm, occlusion or dissection CTA neck: No significant stenosis, occlusion or dissection. CT perfusion: No suspicious perfusion defect. [facility] to enable computer-assisted triage and notification to rapidly detect a LVO and shorten time to notification. Workstation ID: [id number] at [id number] Reported and signed by: Marcio Miller M.D. CC: Poli Jackson MD Technologist: JAH LAINEZ RT(CT)(ARRT); ... Transcribed Date/Time: 05/25/2024 (102)Pest Control Worker Helper: UMR:DENNY Reynoso Print D/T: S: 05/25/2024 (2228) PAGE 2 Signed Report Date:25-May-2024 Status:Completed CT BRAIN PERFUSIONResult:[facility] [id number] Posadas Phys: [place] [address] : 1980 Age: 44 Sex: M Acct: [id number] Loc: .ER PHONE #: [phone] Exam Date: 05/25/2024 Status: REG ER FAX #: [phone] Unit: [id number] PACS: [id number] Exam Completed: 05/25/24 @ 1006 EXAMS: [id number] CTA STROKE HEAD W-WO CONT, [id number] CTA STROKE NECK W-WO CONT, [id number] CT BRAIN PERFUSION HISTORY: Stroke alert. Change in mental status. Left-sided numbness TECHNIQUE: Multidetector CT angiography of the brain and neck was performed following intravenous administration of 100 mL ow-osmolar contrast material. 2D and 3D angiographic reconstruction of the images was performed and reviewed in an independent workstation. Radiation dose optimization protocol utilized. NASCET criteria utilized. [facility] LVO Technology used to assist in diagnosis. All CT scans are performed using dose optimization techniques as appropriate to a perform exam including the following: - Automated exposure control - Adjustment of the mA and/or Kv according to patient size (these includes techniques or standardized protocol for dilated exams where there was is matched to indication/reason for exam. - Use of the iterative reconstruction technique <No Selection> DLP:[address] performed same day. FINDINGS: Evaluation of the anterior circulation demonstrates patent bilateral intracranial internal carotid arteries and middle cerebral arteries. The anterior cerebral arteries are normal. Evaluation of the posterior circulation demonstrates patent bilateral intracranial vertebral arteries and basilar artery. The posterior cerebral arteries are patent. FINDINGS: There is normal 3-vessel branching of the great vessels from the aortic arch. PAGE 1 Signed Report (CONTINUED) [facility] Name: [facility] Julieta Posadas Phys: [place] [address] : 1980 Age: 44 Sex: M Acct: [id number] Loc: Ying.ER PHONE #: [phone] Exam Date: 05/25/2024 Status: REG ER FAX #: [phone] Unit: [id number] PACS: [id number] Exam Completed: 05/25/24 @ 1006 EXAMS: [id number] CTA STROKE HEAD W-WO CONT, [id number] CTA STROKE NECK W-WO CONT, [id number] CT BRAIN PERFUSION <Continued> RIGHT COMMON, INTERNAL, AND EXTERNAL CAROTID ARTERIES: . No significant stenosis LEFT COMMON, INTERNAL, AND EXTERNAL CAROTID ARTERIES: No significant stenosis VERTEBRAL ARTERIES: Patent ADDITIONAL FINDINGS: Postsurgical changes of the spine. CT perfusion: No suspicious perfusion defect. IMPRESSION: CTA head: No aneurysm, occlusion or dissection CTA neck: No significant stenosis, occlusion or dissection. CT perfusion: No suspicious perfusion defect. CTA imaging was analyzed by [facility] LVO ContaCT to enable computer-assisted triage and notification to rapidly detect a LVO and shorten time to notification. Workstation ID: [id number] at [id number] Reported and signed by: Marcio Miller M.D. CC: Poli Jackson MD Technologist: JAH LAINEZ RT(CT)(ARRT); ... Transcribed Date/Time: 05/25/2024 (1028)Pest Control Worker Helper: UMR:DENNY Cueto D/T: S: 05/25/2024 (3288) PAGE 2 Signed Report Date:25-May-2024 Status:Completed - CT STROKE BRAIN WO CONTRASTResult:[facility] Name: NOLBERTO GARY [address] Julieta Posadas Phys: [place] [address] : 1980 Age: 44 Sex: M Acct: [id number] Loc: TengahER PHONE #: [phone] Exam Date: 05/25/2024 Status: REG ER FAX #: [phone] Unit: [id number] PACS: [id number] Exam Completed: 05/25/24 @ 0955 EXAMS: [id number] CT STROKE BRAIN WO CONTRAST HISTORY: Stroke, left-sided numbness EXAMINATION: CT HEAD WITHOUT CONTRAST: COMPARISON: None PROCEDURE COMMENTS: CT of the head was performed without IV contrast. [facility] utilized dose optimization techniques including the following: *Automated exposure control *Adjustment to the mA and/or kV according to patient size; and/or *Use of iterative reconstruction technique FINDINGS: Parenchyma and extra-axial spaces: No acute hemorrhage. Patel-white matter differentiation is maintained. No mass effect or midline shift. No extra-axial collection. Ventricles: Appropriate for age. No ventriculomegaly. No ventricular effacement. Visualized paranasal sinuses: Clear. Mastoid air cells: Clear. Bones: No abnormality. Extracranial soft tissues: No abnormality. Additional comment: None. IMPRESSION: No acute hemorrhage, mass effect, or midline shift. If clinical concern persists, MRI is recommended. Preliminary findings reported via iDiDiD application on at 09:52 a.m. Workstation ID: [id number] PAGE 1 Signed Report (CONTINUED) [facility] Name: NOLBERTO GARY Julieta Cuauhtemoc Phys: [place] [address] : 1980 Age: 44 Sex: M Acct: [id number] Loc: . PHONE #: [phone] Exam Date: 05/25/2024 Status: [facility] FAX #: [phone] Unit: [id number] PACS: [id number] Exam Completed: 05/25/24 @ 0955 EXAMS: [id number] CT STROKE BRAIN WO CONTRAST <Continued> I, Mikael Santacruz M.D., staff radiologist, have reviewed the images for this examination and the diagnostic interpretation provided by Tatiana Lopez M.D., resident medical officer, and I am in complete agreement with the findings. at 1007 RESIDENT: TATIANA LOPEZ MD Reported and signed by: Mikael Santacruz M.D. CC: Poli Jackson MD Technologist: JAH LAINEZ RT(CT)(ARRT); ... Transcribed Date/Time: 05/25/2024 (1007)Pest Control Worker Helper: UMR:DENNY Reynoso Print D/T: S: 05/25/2024 (1010) PAGE 2 Signed Report Date:25-May-2024 Status:Completed Social History Smoking Status Smokes tobacco daily Recorded: 25-May-2024 Results VITAMIN D 1,25 - DIHYDROXY Ordered On:26-May-2024 Comments:Add on Test: YesAdd on Test: Yes 28-May-2024 11:08 VITAMIN D 1,25 - YQSLMLYKA13.6pg/mL Range:24.8pg/mL-81.5pg/mL Comments:Performed At: [facility] [id number] [place], [place] [id number] Sean MD Ph:[phone] CBC W/DIFF Ordered On:26-May-2024 06:25 BASOPHIL ABSOLUTE #0.0410*3/uL(Normal) Range:0.0110*3/uL-0.0810*3/uL BASOPHIL0.5%(Normal) Range:0.2%- 1.2% EOSINOPHIL1.3%(Normal) Range:0.8 %-7% JZHRCAQHWP48.5%(Normal) Range:21 .8%-53.1% MONOCYTE7.9%(Normal) Range:5.3%- 12.2% NUCLEATED RBC #0.0010*3/uL(Normal) Range:010*3/uL-0.1810*3/uL NUCLEATED RBC %0.0%(Normal) Rang e:0%-0.2% EOSINOPHIL ABSOLUTE #0.1010*3/uL(Normal) Range:0.0410*3/uL-0.5410*3/uL SEGMENTED BEEVJUBLKP96.4%(Normal) Range:34%-67.9% CPLLJAJQZF34.8%(Low) Range:40.1% -51% MWMZXNENBI83.4g/dL(Low) Range:13 .7g/dL-17.5g/dL IMMATURE GRANS #0.0310*3/uL(Normal) Range:010*3/uL-0.0310*3/uL IMMATURE GRANULOCYTES0.4%(Normal) Range:0%-0.4% LYMPHOCYTE ABSOULUTE #2.0310*3/uL(Normal) Range:1.3210*3/uL-3.5710*3/uL MEAN CELL HGB22.9pg(Low) Range:2 5.7pg-32.2pg MEAN CELL HGB OVOGQQUYVBYOE88.8g/dL(Low) Range:32.3g/dL-36.5g/dL MEAN CELL OKVXOL05.4fL(Low) Rang e:79fL-92.2fL MONOCYTE ABSOLUTE #0.6310*3/uL(Normal) Range:0.310*3/uL-0.8210*3/uL MEAN PLATELET JBDFJE40.5fL(Normal) Range:9.4fL-12.4fL NEUTROPHIL ABSOLUTE #5.1210*3/uL(Normal) Range:1.7810*3/uL-5.3810*3/uL PLATELET EYBXE14549*3/uL(Normal) Range:64752*3/uL-04678*3/uL RED BLOOD CELL4.5410*6/uL(Low) R eve:4.6310*6/uL-6.0810*6/uL RDW16.9%(High) Range:11.6%-14.4 % WHITE BLOOD CELL8.0{10_3/u}(Normal) Range:4{10_3/u}-10.5{10_3/u} BASIC METABOLIC PANEL Ordered On:26-May-2024 07:13 BLOOD UREA VIVJXFKH3ml/dL(Normal) Range:6mg/dL-22mg/dL CALCIUM8.9mg/dL(Normal) Range:8. 4mg/dL-10.2mg/dL SBRMNCIB288alzu/L(Normal) Range: 95mmol/L-110mmol/L CARBON FPAEJFV41wurp/L(Normal) R eve:19mmol/L-34mmol/L CREATININE0.90mg/dL(Normal) Rang e:0.43mg/dL-1.13mg/dL Comments:The eGFR is calculated using the 2020 CKD-EPI Cr equation,which includes serum Cr, age, and sex but does not include arace coefficient. The National Kidney Foundation recommendsthis formula for calculating eGFR in adults. GFR will notcalculate if sex is unknown, patient age is <18 years or ifserum Creatinine is <0.20 mg/dL or non-numerical. eGFR>90 Range:>/=90 Comments:Ref range: >/= 90 mL/min/1.73 m2 WFUFJFZ53al/dL(Normal) Range:70m g/dL-110mg/dL POTASSIUM4.7mmol/L(Normal) Range :3.5mmol/L-5.2mmol/L YSDDLM020eaec/L(Normal) Range:13 5mmol/L-145mmol/L PHOSPHOROUS Ordered On:26-May-2024 07:13 PHOSPHOROUS4.4mg/dL(Normal) Ra nge:2.3mg/dL-5mg/dL C REACTIVE PROTEIN Ordered On:26-May-2024 09:00 C REACTIVE PROTEIN0.8mg/dL(Normal) Range:0mg/dL-1mg/dL ANTINUCLEAR ANTIBODIES Ordered On:26-May-2024 09:00 ANTINUCLEAR ANTIBODIESNegative Range:Negative Comments:Although this DARCI screening test is negative, if clinicalautoimmune disease is still suspected, the followingspecific tests may be considered: anti-phospholipid antibodyfor Polymyositis/Dermatomyositis; and anti-Cardiolipinantibody and Lupus Anticoagulant for the AntiphospholipidSyndrome.DARCI testing is performed using the Wochitlex 2200Multiplex Flow Immunoassay methodology. SED RATE Ordered On:26-May-2024 14:46 SED PNMR31cq/h(High) Range:0mm /h-10mm/h PHOSPHOROUS Ordered On:25-May-2024 16:10 PHOSPHOROUS5.1mg/dL(High) Rang e:2.3mg/dL-5mg/dL IRON PROFILE Ordered On:25-May-2024 23:25 SERUM IRON EZDXH29dl/dL Range: 35ug/dL-150ug/dL Comments:Deferoxamine may decrease iron values. IRON SATURATION9.0%(Abnormal) Ra nge:20%-55% TOTAL IRON BINDING ZLJNVHPJ331yw/dL(Abnormal) Range:260ug/dL-400ug/dL URINE DRUG SCREEN Ordered On:25-May-2024 12:19 AMPHETAMINES URINENegative Ran ge:1000 CUTOFF BARBITURATES URINENegative Range :200 CUTOFF BENZODIAZEPINES URINENegative Ra nge:200 CUTOFF Comments:These are screening test results for medical purposes only.Any positive result is considered unconfirmed. A negativeresult indicates that no drug is present in the sample sun present at concentrations below the cutoff level.Cutoff levels are as follows:Amphetamine/Methampheta mine 1000 ng/mL Vrhphpuptrx428 ng/mL Benzodiazepine 200 ng/mLCocaine 300 ng/mL Cxxehfu590 ng/mL Cannabinoids (THC) 50 ng/mL MARIJUANA/THC URINENegative Rang e:50 CUTOFF UR COCAINENegative Range:300 CUT OFF Phencyclidine UrNegative Range:2 5 CUTOFF OPIATES URINENegative Range:300 CUTOFF CBC W/DIFF Ordered On:25-May-2024 10:25 BASOPHIL ABSOLUTE #0.0410*3/uL(Normal) Range:0.0110*3/uL-0.0810*3/uL BASOPHIL0.4%(Normal) Range:0.2%- 1.2% EOSINOPHIL0.5%(Low) Range:0.8%-7 % OSVUKYIRPI31.7%(Low) Range:21.8% -53.1% MONOCYTE5.4%(Normal) Range:5.3%- 12.2% NUCLEATED RBC #0.0010*3/uL(Normal) Range:010*3/uL-0.1810*3/uL NUCLEATED RBC %0.0%(Normal) Rang e:0%-0.2% EOSINOPHIL ABSOLUTE #0.0510*3/uL(Normal) Range:0.0410*3/uL-0.5410*3/uL SEGMENTED VRQQUVSEDZ42.6%(High) Range:34%-67.9% DWUFGMXKIM45.6%(Low) Range:40.1% -51% VMYUSZFEHR99.3g/dL(Low) Range:13 .7g/dL-17.5g/dL IMMATURE GRANS #0.0410*3/uL(High) Range:010*3/uL-0.0310*3/uL IMMATURE GRANULOCYTES0.4%(Normal) Range:0%-0.4% LYMPHOCYTE ABSOULUTE #1.2610*3/uL(Low) Range:1.3210*3/uL-3.5710*3/uL MEAN CELL HGB22.6pg(Low) Range:2 5.7pg-32.2pg MEAN CELL HGB LHLTTTPJUIREA38.9g/dL(Low) Range:32.3g/dL-36.5g/dL MEAN CELL KCMQKA69.1fL(Low) Rang e:79fL-92.2fL MONOCYTE ABSOLUTE #0.5410*3/uL(Normal) Range:0.310*3/uL-0.8210*3/uL MEAN PLATELET FAEQMX53.1fL(Normal) Range:9.4fL-12.4fL NEUTROPHIL ABSOLUTE #8.0310*3/uL(High) Range:1.7810*3/uL-5.3810*3/uL PLATELET QDRLY27702*3/uL(Normal) Range:49563*3/uL-57085*3/uL RED BLOOD CELL5.0110*6/uL(Normal) Range:4.6310*6/uL-6.0810*6/uL RDW16.5%(High) Range:11.6%-14.4 % WHITE BLOOD CELL10.0{10_3/u}(Normal) Range:4{10_3/u}-10.5{10_3/u} BASIC METABOLIC PANEL Ordered On:25-May-2024 10:59 BLOOD UREA HOFBTCYW18jp/dL(Normal) Range:6mg/dL-22mg/dL CALCIUM9.3mg/dL(Normal) Range:8. 4mg/dL-10.2mg/dL MDAOQOQQ779rbeu/L(Normal) Range: 95mmol/L-110mmol/L CARBON LUNLTMX63usyr/L(Normal) R eve:19mmol/L-34mmol/L CREATININE1.10mg/dL(Normal) Rang e:0.43mg/dL-1.13mg/dL Comments:The eGFR is calculated using the 2020 CKD-EPI Cr equation,which includes serum Cr, age, and sex but does not include arace coefficient. The National Kidney Foundation recommendsthis formula for calculating eGFR in adults. GFR will notcalculate if sex is unknown, patient age is <18 years or ifserum Creatinine is <0.20 mg/dL or non-numerical. eGFR84(Low) Range:>/=90 Comments:Ref range: >/= 90 mL/min/1.73 m2 NGVGQYP039jv/dL(Normal) Range:70 mg/dL-110mg/dL POTASSIUM3.6mmol/L(Normal) Range :3.5mmol/L-5.2mmol/L IYWNRX471kcha/L(Normal) Range:13 5mmol/L-145mmol/L TROPONIN-I Ordered On:25-May-2024 10:59 TROPONIN-I<0.012ng/mL(Normal) Range:0ng/mL-0.034ng/mL Comments:Comment:Reference Interval encompassing the 99th percentile: < 0.012-0.034 ng/mlCardiac Troponin I level of > 0.034 ng/ml indicatesincreasing risk for myocardial damage. AMI diagnostic cutoff is 0.120 ng/mL. The National Academy of Clinical Biochemistry Standards ofLaboratory Practices (NACB) and the International Federationof Clinical Chemistry (IFCC) recommend a minimum of threeserial blood samples within 24 hours of admission. Serialsampling is recommended to detect the temporal rise and fallof cTnI levels characteristic of AMI. Increased cTnI concentrations can be found in conditionsother than AMI such as: sepsis, congestive heart failure,hypertension with left ventricular hypertrophy, hemodynamiccompromise, myocarditis, mechanical injury including cardiacsurgery, defibrillation and cardiac toxins such asanthracyclines. Factors such as these should be consideredwhen interpreting results from any cTnI test method. HEPATIC FUNCTION PANEL Ordered On:25-May-2024 10:59 ALBUMIN4.8g/dL(Normal) Range:3 .2g/dL-5g/dL ALKALINE PHOSPHATASE OTBOS913A/L(Normal) Range:20U/L-130U/L ALT/RTNR34Q/L(Normal) Range:10U/ L-60U/L Comments:Venipuncture should occur prior to sulfasalazine orsulfapyridine administration due to the potential forfalsely depressed results. AST/FLXL81C/L(Normal) Range:10U/ L-40U/L BILIRUBIN PMGYJLRVVR8su/dL(Normal) Range:0mg/dL-0.3mg/dL BILIRUBIN TOTAL0.8mg/dL(Normal) Range:0.1mg/dL-1.2mg/dL BILIRUBIN UNCONJUGATED0.4mg/dL(Normal) Range:0mg/dL-1.1mg/dL TOTAL PROTEIN7.7g/dL(Normal) Ran ge:5.5g/dL-8.7g/dL PHOSPHOROUS Ordered On:25-May-2024 10:59 PHOSPHOROUS<1.0mg/dL (Critical low) Range:2.3mg/dL-5mg/dL Comments:Notification of critical value taken and read back fxNJU1527ep 1037 on 05/25/24. Tests called: PHOSPlease ensure that this result is consistent with thepatient's status. If it is not, please reorder the test as aSTAT. MAGNESIUM Ordered On:25-May-2024 10:59 MAGNESIUM2.0mg/dL(Normal) Rang e:1.6mg/dL-2.4mg/dL ALCOHOL Ordered On:25-May-2024 10:59 ALCOHOL<10mg/dL(Normal) Range: 0mg/dL-10mg/dL Comments:Note: For Medical Evaluation Purposes only. This test maygive a positive result if other alcohols are present in thesample, e.g., draw site cleansed with alcohol or othervolatile disinfectants. Clinical correlation is advised. PROTHROMBIN TIME Ordered On:25-May-2024 Comments :On anticoagulants: Unknown 25-May-2024 10:34 PROTHROMBIN TIME YJQHXFD65.9s(Normal) Range:10s-12.8s INTERNATIONAL NORMAL RAIO1.1(Normal) Range:0.8-1.1 Comments:Use INR for clinical decision makingRecommended Therapeutic Range:INDICATION TARGETED INR RANGEPrevention and treatment of VTE 2.0-3.0Atrial Fibrillation 2.0-3.0Acute myocardial infarction 2.0-3.0Valvular heart disease 2.0-3.0Prosthetic tissue heart valves 2.5-3.5Recurrent Thromboembolism 2.5-3.5Targeted INR range of 2-3 is appropriate for patients whohave a mechanical bileaflet in the aortic position, normalcardiac chamber size, and no other risk factors for stroke.Co-administration of argatroban and warfarin produces acombined effect on INR. Consult pharmacist or physician todetermine if warfarin dose should be held when INR iselevated and patient is receiving argatroban. PTT (APTT) Ordered On:25-May-2024 Comments: On anticoagulants: Unknown 25-May-2024 10:34 PTT (APTT)33s(Normal) Range:25 s-38s Comments:Therapeutic heparin range is 58-92 seconds. CL CHEMISTRY CALL TEST(Pending) Ordered On:25-May-2024 10:51 CL CHEMISTRY CALL TEST LIPID PROFILE Ordered On:25-May-2024 04:46 WCPXRFONOFA852ah/dL(High) Rang e:0mg/dL-200mg/dL HDL QPCZEDLUXTB42hq/dL Range:0mg /dL-60mg/dL LIPOPROTEIN PAG714zs/dL(Abnormal) Range:0mg/dL-130mg/dL NON-YMG287gm/dL Range:() mg/dl Comments:Goals for Patients with CHD or CHD risk equivalents:LDL: < 70 mg/dlNON-HDL: <100 mg/dlGoals for Patients with 2+ risk factors:LDL: <130 mg/dlNON-HDL: <160 mg/dlGoals for Patients with 0-1 risk factors:LDL: <160 mg/dlNON-HDL: <190 mg/dl CHOLESTROL/HDL RATIO7.9(Abnormal) Range:1.5-5.6 NIVFGOCGALSSC569it/dL(High) Rang e:0mg/dL-150mg/dL Comments:If patient is taking N-Acetylcycteine, Triglycerides may befalsely decreased.If patient is taking Metamizole, Triglycerides and HDL maybe falsely decreased. TSH c Reflex FT4 Ordered On:25-May-2024 04:46 TSH c Reflex FT41.050{mcInU/ml}(Normal) Range:0.465{mcInU/ml}-4.68{mcIn U/ml} GLYHB Ordered On:25-May-2024 04:46 eAG MG.LG607ul/dL(Abnormal) Ra nge:0-125mg/dL Comments:EAG = estimated Average Glucose over 2-3 months GLYCOSYLATED HEMOGLO BIN (HA1C)6.0%(Abnormal) Range:0-5.7% Comments:A1C < 5.7% - InimeyP2E 5.7%-6.4% - For screening of yqqghgfhoopQ1M > OR = 6.5 - DiabetesNote: New above reference intervals follow the ADArecommendations Vital Signs 27-May-2024 04:45 TEMP KXSATEU53.6c Comments:36.6 Pulse68 Comments:68 Respiratory Rate18 Comments:18 O2 SAT99% Comments:99 BP Uexxelln363gv[Hg] Comments:14 9 BP Zsgpqiyba03wp[Hg] Comments:78 27-May-2024 00:09 TEMP XQPFPMP97.5c Comments:36.5 Pulse76 Comments:76 Respiratory Rate18 Comments:18 O2 SAT99% Comments:99 BP Busbyxmd289uv[Hg] Comments:13 3 BP Rkdktofcf15jj[Hg] Comments:71 26-May-2024 20:30 TEMP VBBCMMJ97.7c Comments:36.7 Pulse70 Comments:70 Respiratory Rate18 Comments:18 O2 SAT97% Comments:97 BP Anbuvrxt414ml[Hg] Comments:14 4 BP Twpvfzsqs32ys[Hg] Comments:81 26-May-2024 09:57 Height6.5773512[ft_us] Comments: 6 Ngfcbn52.3kg Comments:96.300 26-May-2024 09:57 BMI27.2kg/m2 Comments:27.2 26-May-2024 09:06 TEMP UHRYUQI60.5c Comments:36.5 Pulse62 Comments:62 Respiratory Rate20 Comments:20 O2 CAG170% Comments:100 BP Vufbnonu580rc[Hg] Comments:12 9 BP Ciyguzwzy91fx[Hg] Comments:84 26-May-2024 04:18 TEMP RBRHVLZ94.3c Comments:36.3 Pulse61 Comments:61 Respiratory Rate18 Comments:18 O2 SAT98% Comments:98 BP Pguwozni738sf[Hg] Comments:12 5 BP Dxdrtnavx66db[Hg] Comments:74 26-May-2024 00:17 TEMP EIXLJUL19.7c Comments:36.7 Pulse66 Comments:66 Respiratory Rate18 Comments:18 O2 SAT99% Comments:99 BP Rlisxtex482fc[Hg] Comments:12 0 BP Uwikocmyf72ig[Hg] Comments:75 25-May-2024 19:28 TEMP SMZAHAY30.7c Comments:36.7 Pulse71 Comments:71 Respiratory Rate18 Comments:18 O2 SAT98% Comments:98 BP Fksxrhge200vp[Hg] Comments:13 3 BP Oeqapkcmu93aa[Hg] Comments:84 25-May-2024 18:36 TEMP WWLXRGB51a Comments:37.0 Pulse61 Comments:61 Respiratory Rate17 Comments:17 O2 SAT97% Comments:97 BP Jaraidth604aj[Hg] Comments:12 5 BP Xskclyape52sc[Hg] Comments:74 25-May-2024 16:00 TEMP IAULJPA76.4c Comments:36.4 Pulse60 Comments:60 Respiratory Rate17 Comments:17 O2 SAT99% Comments:99 BP Hyrqlphs202qp[Hg] Comments:14 3 BP Tfcpmlaje36rs[Hg] Comments:90 25-May-2024 15:30 Height6.1421712[ft_us] Comments: 6 Mcqpci11.3kg Comments:96.300 25-May-2024 13:35 TEMP SGTAGIN66.9c Comments:36.9 Pulse64 Comments:64 Respiratory Rate17 Comments:17 O2 SAT99% Comments:99 BP Wvegzmbo316gs[Hg] Comments:13 0 BP Daeenasmw96ud[Hg] Comments:86 25-May-2024 10:29 TEMP XOHTLVX49.5c Comments:36.5 Pulse71 Comments:71 Respiratory Rate14 Comments:14 O2 SAT99% Comments:99 BP Nrisqeef009sh[Hg] Comments:13 3 BP Tqwtzkndq87wp[Hg] Comments:83 Oxygen delivery devices: Comment s:Room air Height6.3688298[ft_us] Comments: 6 Egfdac12.3kg Comments:96.300 25-May-2024 10:20 Pulse72 Comments:72 Respiratory Rate25 Comments:25 O2 CDF547% Comments:100 BP Vhcwtlyq519ir[Hg] Comments:13 3 BP Autnfzwch03uf[Hg] Comments:83 25-May-2024 09:47 Pulse80 Comments:80 O2 TRJ358% Comments:100 BP Gimkrwbc868hh[Hg] Comments:15 1 BP Pfnavwndo18tn[Hg] Comments:85 Encounters Inpatient encounter Encounter Reason:LEFT SIDED NUMBNESS Encounter Diagnosis:Dysphonia,Other disorders of phosphorus metabolism,Iron deficiency anemia, unspecified,Pure hyperglyceridemia,Nicotine dependence, other tobacco product, uncomplicated,Tobacco abuse counseling,Personal history of other diseases of the nervous system and sense organs,Arhrodesis status,Personal history of other diseases of the circulatory system,Anesthesia of skin 25-May-2024 09:[id number] 07:45 [facility] Discharge Disposition:Discharged to home or self care (routine discharge) ? ? ? MANAGEMENT [id number] [facility] [id number] [place] [address] Case Management ReportPATIENT'S NAME: NOLBERTO GARY ROOM #: [id number].642-NDATE OF : 78 UNIT #: [id number]: Ghislaine Mcnair MD ADMISSION DATE: 05/25/24 [facility] SUPPORT SERVICES ----- ---[facility] Support Services User Andres:Comments:HOME Date Entered: 05/26/2024Service Type: *Case ManagementCase Worker: Lupe Rivero 6NTWorklist Date: 05/27/2024Payer: MEDICAID PENDINGComments:--- 05/26/2024 02:28 PM by Letitia Ngo ---CM initial assessment and DPECM spoke with pt at bedside. 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 --HCM DISCHARGE PLANNING ----- ---HCM Discharge Planning Comments: ----- ----HCM DISCHARGE PLANNING EVALUATION ----- -----Case Workers: Mu Ngo Status: Spouse-partnerSetting: Home-residenceADL Limits: None or n/aDME: NoneHCM Discharge Planning User Andres:PATIENT NAME: NOLBERTO GARY Services Prior to Admission: None or NACurrent Mental Status/Cognition: Alert and OrientedInformation obtained from: PatientDischarge Barriers, select all that apply: None or NAReadmission (unplanned) in the last 30 days: NoPatient goals and preferences after discharge: return homeBased on information gathered, is it likely that the patient's care needs canbe met in the environment from which he/she entered the hospital?: YesProposed Discharge Plan, select one: HomeHome Services needed: None or Gale a caregiver is needed, is there a caregiver available, willing and capableto provide care?: YesCommunity services needed: NoneNew DME required at discharge: None or Glae new DME is required, is patient able to obtain DME?: Not ApplicableHome Modifications required: None or Gale home modifications are required, is patient able to obtain them?: NotApplicablePatient concerns about obtaining medications on day of discharge?: NoneTransportation needs at discharge: no needsDischarge Plan Discussed with: PatientHave you discussed with the patient how his/her care needs may change overtime?: YesPatient/traveling representative agrees with discharge plan: YesDiscussed expected insurance coverage and/or out of pocket expenses: YesDate / Time: 05/26/2024 2:23 PMEvaluated by: Letitia Ngo ===== PATIENT NAME: NOLBERTO GARY by: Mercedes Brennan () - 05/27/2024 8:29 AM ==PAT IENT NAME: NOLBERTO GARY
--- NOTE | 2024-06-28 13:01 | MR_ITS ---
FINAL REPORT CLINICAL HISTORY: F/U WHITE MATTER DISEASE. FINDINGS: Multiplanar MR imaging of the brain was performed without and with contrast. There is no evidence of intracranial hemorrhage or mass. No abnormal extra-axial fluid collection is seen. The ventricular size is within normal limits. There is no evidence of shift of the midline structures. The posterior fossa and brainstem have an unremarkable appearance. No area of abnormal restricted diffusion is identified. No abnormal contrast enhancement is seen. Normal major vessel vascular flow voids are noted. IMPRESSION: No acute intracranial abnormality identified. Reviewed, Interpreted and Dictated by Lukasz Fluton MD Transcribed by April Kendrick Authenticated and [facility]
[2024-06-28] MEDS: GADOTERIDOL INJ 20ML SYRINGE 19 ML IV (14:19)
[2024-06-28] MEDS: SODIUM CHLORIDE 0.9% 10ML SYR (RAD ONLY) 10 ML IV (14:19)
== END 2024-06-28 23:59 | disposition home or self-care (01) ==
LOC: RAD 12:58
PROVIDERS: PCP Physician Assistant; Visit Provider Physician Assistant
DX: R90.82 White matter disease, unspecified (principal)
CPT/HCPCS: 70553; A9576